=== PATIENT | female | born 1970 | race Caucasian/White ===

== ENCOUNTER 2018-08-02 16:15 | Inpatient (IN) | payer MEDICAID ==
[2018-08-02 16:24] VITALS: BMI 31.6
--- NOTE | 2018-08-02 16:44 | ED PDOC ---
Arrival/HPI - General Chief Complaint: Abdominal Pain Time Seen by Provider: 08/02/18 16:30 Historian: Patient, Family (Daughter), Etl Manager (Daughter) EM Caveat: Language Barrier - History of Present Illness Narrative History of Present Illness (Text): 08/02/18 16:40 48 y/o female with PMH of GERD and HTN presents to the ED c/o abdominal pain x 2 weeks. Abdominal pain is sharp, located in RUQ and Epigastric with radiation to back, constant but worse after eating. Associated nausea and occasional lightheadedness. Patient was seen at an Emergency Department in [place] and was diagnosed with gallstones, but elected not to have surgery at that time. She was placed on a course of antibiotics, which helped with her pain. Pt saw her PMD Dr. Haines this morning and was sent here for further evaluation. Taking tylenol for pain, last dose yesterday. Denies fevers, chills, vomiting, diarrhea, back pain, headache, vision changes, chest pain, diaphoresis, palpitations, SOB, urinary symptoms, or any other associated complaints. Past Medical History - Provider Review Nursing Documentation Reviewed: Yes - Infectious Disease Hx of Infectious Diseases: None - Cardiac Hx Cardiac Disorders: Yes Hx Hypertension: Yes - Pulmonary Hx Respiratory Disorders: Yes Hx Asthma: Yes - Neurological Hx Neurological Disorder: No - HEENT Hx HEENT Disorder: No - Renal Hx Renal Disorder: No - Endocrine/Metabolic Hx Endocrine Disorders: No - Hematological/Oncological Hx Blood Disorders: No - Integumentary Hx Dermatological Disorder: No - Musculoskeletal/Rheumatological Hx Musculoskeletal Disorders: No - Gastrointestinal Hx Gastrointestinal Disorders: No - Genitourinary/Gynecological Hx Genitourinary Disorders: No - Psychiatric Hx Psychophysiologic Disorder: No Hx Substance Use: No - Surgical History Hx Hysterectomy: Yes - Anesthesia Hx Anesthesia: Yes Hx Anesthesia Reactions: No - Suicidal Assessment Feels Threatened In Home Enviroment: No Family/Social History - Physician Review Nursing Documentation Reviewed: Yes Family/Social History: No Known Family HX Smoking Status: Never Smoked Hx Alcohol Use: No Hx Substance Use: No Allergies/Home Meds Allergies/Adverse Reactions: Allergies No Known Allergies Allergy (Verified 08/02/18 16:24) Home Medications: Home Meds Medication Instructions Recorded Confirmed Pantoprazole 40 mg PO DAILY 12/20/13 08/17/15 Calcium Citrate/Vitamin D3 1 tab PO DAILY 08/02/18 08/02/18 [Calcium Citrate - Vit D3 Tab] Dexlansoprazole [Dexilant] 60 mg PO DAILY 08/02/18 08/02/18 Hydrochlorothiazide [Microzide] 12.5 mg PO DAILY 08/02/18 08/02/18 Review of Systems - Physician Review All systems were reviewed & negative as marked: Yes - Review of Systems Constitutional: Normal. absent: Fatigue, Fevers Eyes: Normal. absent: Vision Changes ENT: Normal. absent: Sore Throat, Sinus Congestion Respiratory: Normal. absent: SOB Cardiovascular: Normal. absent: Chest Pain, Palpitations, Syncope Gastrointestinal: Abdominal Pain, Nausea, Appetite Changes (decreased). absent: Stool Changes, Constipation, Vomiting Genitourinary Female: Normal. absent: Dysuria, Frequency, Hematuria, Vaginal Bleeding, Vaginal Discharge Musculoskeletal: Back Pain. absent: Neck Pain Skin: Normal. absent: Rash, Cellulitis Neurological: Normal. absent: Headache Endocrine: Normal Hemo/Lymphatic: Normal Psychiatric: Normal Physical Exam Vital Signs Reviewed: Yes Vital Signs Temp Pulse Resp BP Pulse Ox 08/02/18 16:27 98.0 F 74 18 151/96 H 98 Temperature: Afebrile Blood Pressure: Hypertensive Pulse: Regular Respiratory Rate: Normal Appearance: Positive for: Well-Appearing, Non-Toxic, Comfortable Pain Distress: None Mental Status: Positive for: Alert and Oriented X 3 - Systems Exam Head: Present: Atraumatic, Normocephalic Pupils: Present: PERRL Extroacular Muscles: Present: EOMI Conjunctiva: Present: Normal Ears: Present: Normal, NORMAL TM Mouth: Present: Moist Mucous Membranes Pharnyx: Present: Normal. No: ERYTHEMA, EXUDATE Nose (External): Present: Atraumatic Nose (Internal): Present: Normal Inspection Neck: Present: Normal Range of Motion. No: MIDLINE TENDERNESS, Paraspinal Tenderness Respiratory/Chest: Present: Clear to Auscultation, Good Air Exchange. No: Respiratory Distress, Accessory Muscle Use Cardiovascular: Present: Regular Rate and Rhythm, Normal S1, S2, Peripheal Pulses Present. No: Murmurs Abdomen: Present: Tenderness (RUQ, Epigastric), Normal Bowel Sounds, Other ((+) [place] Sign). No: Distention, Peritoneal Signs Back: Present: Normal Inspection. No: CVA Tenderness, Midline Tenderness, Paraspinal Tenderness Upper Extremity: Present: Normal Inspection, Normal ROM, NORMAL PULSES, Neurovascularly Intact, Capillary Refill < 2s. No: Cyanosis, Edema Lower Extremity: Present: Normal Inspection, NORMAL PULSES, Normal ROM, Neurovascularly Intact, Capillary Refill < 2 s. No: Edema Neurological: Present: GCS=15, CN II-XII Intact, Speech Normal, Motor Func Grossly Intact, Normal Sensory Function, Gait Normal Skin: Present: Warm, Dry, Normal Color. No: Rashes, Diaphoretic Lymphatic: No: Cervical Adenopathy Psychiatric: Present: Alert, Oriented x 3, Normal Insight, Normal Concentration, Normal Affect, Normal Mood Medical Decision Making ED Course and Treatment: 08/02/18 17:14 Initial Plan: * CBC, CMP * Lipase, Amylase * Coags * CXR * EKG * Abd US * IVF * Zofran 19:35 Spoke with surgical technologist Dr. Booker who states he will come to evaluate patient in the ED. 19:[address] Valdez who accepts patient for admission to med-surg floor for diagnosis of symptomatic cholelithiasis. - RAD Interpretation Radiology Orders: Abdominal Ultrasound: FINDINGS: LIVER: Measures 13.9 cm. Hepatopedal blood flow. Fatty infiltration manifest ultrasonographically as increased echogenicity of the liver parenchyma. No mass. No intrahepatic bile duct dilatation. GALLBLADDER: Cholelithiasis. Negative study for gallbladder wall thickening, pericholecystic fluid, sonographic Pino's sign. COMMON BILE DUCT: Measures 4.9 mm. No stones. No dilatation. PANCREAS: Unremarkable as visualized. No mass. No ductal dilatation. RIGHT KIDNEY: Measures 4.5 x 10.7cm. Normal echogenicity. No calculus, mass, or hydronephrosis. LEFT KIDNEY: Measures 511.2cm. Normal echogenicity. No calculus, mass, or hydronephrosis. SPLEEN: Normal in size and contour. No mass. AORTA: No aneurysmal dilatation. IVC: Unremarkable. OTHER FINDINGS: None. IMPRESSION: Cholelithiasis. No sonographic evidence of acute cholecystitis. Intellectual Property Paralegal: Radiologist - EKG Interpretation EKG Interpretation (Text): 08/02/18 17:37 Rate 71; NSR; normal intervals; no ST elevations or other signs of ischemia Interpreted by ED Physician: Yes Type: 12 lead EKG Comparison: Com.w/previous EKG Disposition/Present on Arrival - Present on Arrival Any Indicators Present on Arrival: No History of DVT/PE: No History of Uncontrolled Diabetes: No Urinary Catheter: No History of Decub. Ulcer: No History Surgical Site Infection Following: None - Disposition Have Diagnosis and Disposition been Completed?: Yes Diagnosis: Cholelithiasis Disposition: HOSPITALIZED Disposition Time: 19:45 Patient Plan: Admission Condition: STABLE
[2018-08-02] MEDS ORDERED: Sodium Chloride 0.9% 1,000 ML IV SCH (17:00)
[2018-08-02 17:39] LABS: BASO # 0.03 K/mm3 (0.0-2.0); BASO % 0.6 % (0.0-3.0); EOS # 0.2 (0.0-0.7); EOS % 4.7 % (1.5-5.0); GRAN # 2.39 (1.4-6.5); GRAN % 51.4 % (50.0-68.0); HEMOGLOBIN 11.2 g/dL (12.0-16.0); LYMPH # 1.7 (1.2-3.4); LYMPH % 37.3 % (22.0-35.0); MEAN CELL VOLUME 87.9 fl (80.0-105.0); MEAN CORPUSCULAR HEMOGLOBIN 27.1 pg (25.0-35.0); MEAN CORPUSCULAR HGB CONC 30.8 g/dl (31.0-37.0); MONO # 0.3 (0.1-0.6); RBC 4.14 10^6/uL (3.5-6.1); RED CELL DISTRIBUTION WIDTH 13.5 % (11.5-14.5); WHITE BLOOD COUNT 4.7 10^3/uL (4.5-11.0)
[2018-08-02 17:51] LABS: ALB/GLOB RATIO 1.2 (1.1-1.8); ALBUMIN 3.8 g/dL (3.0-4.8); ALT/SGPT 99 U/L (7-56); AMYLASE 62 U/L (35-125); AST/SGOT 60 U/L (14-36); BLOOD UREA NITROGEN 13 mg/dL (7-21); CALCIUM 8.3 mg/dL (8.4-10.5); GFR NON-AFRICAN AMERICAN > 60; LIPASE 205 U/L (23-300)
[2018-08-02 18:11] LABS: INR 1.07; PROTHROMBIN TIME 12.3 SECONDS (9.4-12.5)
[2018-08-02 18:12] LABS: PARTIAL THROMBOPLASTIN TIME 32.9 Seconds (25.1-36.5); PH,URINE 6.5 (4.7-8.0); URINE BILIRUBIN NEGATIVE (NEGATIVE); URINE BLOOD TRACE-INTACT (NEGATIVE); URINE GLUCOSE (UA) NEGATIVE (NEGATIVE); URINE LEUKOCYTE ESTERASE NEGATIVE Leu/uL (NEGATIVE); URINE PROTEIN NEGATIVE mg/dL (<30 mg/dL); URINE UROBILINOGEN 0.2 E.U./dL (<1 E.U./dL)
[2018-08-02 18:13] LABS: URINE APPEARANCE CLEAR (CLEAR); URINE COLOR YELLOW (YELLOW)
[2018-08-02 18:15] LABS: URINE BACTERIA TRACE (NEG); URINE WBC NEGATIVE /hpf (0-6)
--- NOTE | 2018-08-02 18:52 | US ---
Date of service: 08/02/2018 HISTORY: h/o gallstones, abdominal pain COMPARISON: None. TECHNIQUE: Sonographic evaluation of the abdomen. FINDINGS: LIVER: Measures 13.9 cm. Hepatopedal blood flow. Fatty infiltration manifest ultrasonographically as increased echogenicity of the liver parenchyma. No mass. No intrahepatic bile duct dilatation. GALLBLADDER: Cholelithiasis. Negative study for gallbladder wall thickening, pericholecystic fluid, sonographic Pino's sign. COMMON BILE DUCT: Measures 4.9 mm. No stones. No dilatation. PANCREAS: Unremarkable as visualized. No mass. No ductal dilatation. RIGHT KIDNEY: Measures 4.5 x 10.7cm. Normal echogenicity. No calculus, mass, or hydronephrosis. LEFT KIDNEY: Measures 511.2cm. Normal echogenicity. No calculus, mass, or hydronephrosis. SPLEEN: Normal in size and contour. No mass. AORTA: No aneurysmal dilatation. IVC: Unremarkable. OTHER FINDINGS: None. IMPRESSION: Cholelithiasis. No sonographic evidence of acute cholecystitis.
[2018-08-02] MEDS ORDERED: Morphine 4 mg/ml ISec IVP STA (19:58)
--- NOTE | 2018-08-02 21:12 | CP.PCM.HP ---
<Yudith Leonard - Last Filed: 08/03/18 06:47> History of Present Illness - History of Present Illness History of Present Illness: Yudith Leonard, PGY1 Hospital H&P This is a 48 year old female with PMH of GERD, HTN and eczema presenting to the hospital for one day history of RUQ abdominal pain. Patient states pain started suddenly, radiates to the right side of the back, constant, rated 10/10, sharp, associated with nausea and worse after eating. Patient saw Dr. Haines today for the abdominal pain and was recommended to come to ER for further evaluation. Patient states she had similar pain two weeks ago while in [place] and abdominal US at that time revealed gallstones and physician recommended cholecystectomy but patient declined. She returned to [place] on July 31. She denies CP, SOB, headaches, fevers, chills, vomiting, urinary complaints, diarrhea, constipation, hematemesis, hematochezia, numbness, tingling, swelling, recent sickness, trauma and lifestyle change. 12 point ROS noted above, otherwise unremarkable. PMD: Dr. Haines PMH: GERD, HTN and eczema SH: denies drinking, smoking and drugs Sx: hysterectomy in 2014 FH: denies All: NKDA Meds: HCTZ 12.5mg Present on Admission - Present on Admission Any Indicators Present on Admission: No Past Patient History - Infectious Disease Hx of Infectious Diseases: None - Past Social History Smoking Status: Never Smoked - CARDIAC Hx Cardiac Disorders: Yes Hx Hypertension: Yes - PULMONARY Hx Respiratory Disorders: Yes Hx Asthma: Yes - NEUROLOGICAL Hx Neurological Disorder: No - HEENT Hx HEENT Problems: No - RENAL Hx Chronic Kidney Disease: No - ENDOCRINE/METABOLIC Hx Endocrine Disorders: No - HEMATOLOGICAL/ONCOLOGICAL Hx Blood Disorders: No - INTEGUMENTARY Hx Dermatological Problems: No - MUSCULOSKELETAL/RHEUMATOLOGICAL Hx Musculoskeletal Disorders: No - GASTROINTESTINAL Hx Gastrointestinal Disorders: No - GENITOURINARY/GYNECOLOGICAL Hx Genitourinary Disorders: No - PSYCHIATRIC Hx Psychophysiologic Disorder: No Hx Substance Use: No - SURGICAL HISTORY Hx Hysterectomy: Yes - ANESTHESIA Hx Anesthesia: Yes Hx Anesthesia Reactions: No Meds Allergies/Adverse Reactions: Allergies Allergy/AdvReac Type Severity Reaction Status Date / Time No Known Allergies Allergy Verified 08/02/18 16:24 Physical Exam - Constitutional Appears: No Acute Distress - Head Exam Head Exam: ATRAUMATIC, NORMAL INSPECTION - Eye Exam Eye Exam: EOMI Pupil Exam: PERRL - ENT Exam ENT Exam: Mucous Membranes Moist - Respiratory Exam Respiratory Exam: Clear to Auscultation Bilateral, NORMAL BREATHING PATTERN. absent: Accessory Muscle Use, Wheezes, Respiratory Distress - Cardiovascular Exam Cardiovascular Exam: REGULAR RHYTHM, +S1, +S2 - GI/Abdominal Exam GI & Abdominal Exam: Normal Bowel Sounds, Soft. absent: Distended, Firm, Guarding Additional comments: RUQ tenderness, evans sign negative, rovsing/obturator sign is negative - Extremities Exam Extremities exam: Positive for: normal inspection, pedal pulses present. Negative for: calf tenderness - Back Exam Back exam: NORMAL INSPECTION. absent: CVA tenderness (L), CVA tenderness (R) - Neurological Exam Neurological exam: Alert, Oriented x3 - Skin Skin Exam: Normal Color, Warm Results - Vital Signs Recent Vital Signs: Last Vital Signs Temp 98.0 F 08/02/18 16:27 Pulse 65 08/02/18 20:16 Resp 18 08/02/18 20:16 BP 125/73 08/02/18 20:16 Pulse Ox 100 08/02/18 20:16 - Labs Result Diagrams: 08/02/18 17:30 08/02/18 17:30 Labs: Laboratory Results - last 24 hr 08/02/18 08/02/18 08/02/18 17:30 17:30 17:30 WBC 4.7 RBC 4.14 Hgb 11.2 L Hct 36.4 MCV 87.9 MCH 27.1 MCHC 30.8 L RDW 13.5 Plt Count 213 MPV 10.0 Gran % 51.4 Lymph % (Auto) 37.3 H [place] % (Auto) 6.0 Eos % (Auto) 4.7 Baso % (Auto) 0.6 Gran # 2.39 Lymph # (Auto) 1.7 [place] # (Auto) 0.3 Eos # (Auto) 0.2 Baso # (Auto) 0.03 PT 12.3 INR 1.07 APTT 32.9 Sodium 139 Potassium 3.8 Chloride 108 H Carbon Dioxide 26 Anion Gap 10 BUN 13 Creatinine 0.7 Est GFR ( Amer) > 60 Est GFR (Non-Af Amer) > 60 Random Glucose 112 H Calcium 8.3 L Magnesium 1.8 Total Bilirubin 0.4 AST 60 H ALT 99 H Alkaline Phosphatase 86 Total Protein 7.0 Albumin 3.8 Globulin 3.2 Albumin/Globulin Ratio 1.2 Amylase 62 Lipase 205 Urine Color Urine Appearance Urine pH Ur Specific [place] Urine Protein Urine Glucose (UA) Urine Ketones Urine Blood Urine Nitrate Urine Bilirubin Urine Urobilinogen Ur Leukocyte Esterase Urine RBC Urine WBC Ur Epithelial Cells Urine Bacteria 08/02/18 17:30 WBC RBC Hgb Hct MCV MCH MCHC RDW Plt Count MPV Gran % Lymph % (Auto) [place] % (Auto) Eos % (Auto) Baso % (Auto) Gran # Lymph # (Auto) [place] # (Auto) Eos # (Auto) Baso # (Auto) PT INR APTT Sodium Potassium Chloride Carbon Dioxide Anion Gap BUN Creatinine Est GFR ( Amer) Est GFR (Non-Af Amer) Random Glucose Calcium Magnesium Total Bilirubin AST ALT Alkaline Phosphatase Total Protein Albumin Globulin Albumin/Globulin Ratio Amylase Lipase Urine Color Yellow Urine Appearance Clear Urine pH 6.5 Ur Specific [place] 1.020 Urine Protein Negative Urine Glucose (UA) Negative Urine Ketones Negative Urine Blood Trace-intact H Urine Nitrate Negative Urine Bilirubin Negative Urine Urobilinogen 0.2 Ur Leukocyte Esterase Negative Urine RBC 1 - 3 Urine WBC Negative Ur Epithelial Cells 1 - 3 Urine Bacteria Trace Assessment & Plan - Assessment and Plan (Free Text) Assessment: This is a 48 year old female with PMH of GERD, HTN and eczema presenting to the hospital for one day history of RUQ abdominal pain. Plan: Cholelithiasis -Abd US showed cholelithiasis, no evidence of acute cholecystitis -EKG showed NSR at 71bpm not ST/T changes -CXR pending, f/u official read -LR 115 -zofran prn -morphine prn -no WBC, afebrile. No antibx needed at this time -urine, blood cx pending -NPO -plan for OR tomorrow -General sx on consult, Dr. Meade Hypocalcemia -repleted, f/u AM labs Hx of GERD -protonix 40mg IVP daily Hx of HTN -hydralazine 10mg IVP q6 prn for systolic >140 PPX with protonix and SCD Patient seen and case discussed with attending, Dr. Valdez <Laurie Valdez - Last Filed: 08/03/18 19:11> Results - Vital Signs Recent Vital Signs: Last Vital Signs Temp 98.4 F 08/03/18 16:47 Pulse 68 08/03/18 16:47 Resp 18 08/03/18 16:47 BP 114/63 08/03/18 16:47 Pulse Ox 96 08/03/18 16:47 - Labs Result Diagrams: 08/03/18 06:40 08/03/18 06:40 Labs: Laboratory Results - last 24 hr 08/02/18 08/03/18 08/03/18 21:00 06:40 06:40 WBC 3.7 L D RBC 4.41 Hgb 11.8 L Hct 38.9 MCV 88.2 MCH 26.8 MCHC 30.3 L RDW 13.3 Plt Count 207 MPV 10.5 Gran % 47.7 L Lymph % (Auto) 39.8 H [place] % (Auto) 6.8 H Eos % (Auto) 4.9 Baso % (Auto) 0.8 Gran # 1.75 Lymph # (Auto) 1.5 [place] # (Auto) 0.3 Eos # (Auto) 0.2 Baso # (Auto) 0.03 Sodium 140 Potassium 4.1 Chloride 109 H Carbon Dioxide 26 Anion Gap 9 L BUN 8 Creatinine 0.6 L Est GFR ( Amer) > 60 Est GFR (Non-Af Amer) > 60 Random Glucose 96 Calcium 8.5 Total Bilirubin 0.5 AST 63 H ALT 99 H Alkaline Phosphatase 75 Total Protein 6.7 Albumin 3.6 Globulin 3.1 Albumin/Globulin Ratio 1.1 Hepatitis A IgM Ab Negative Hep Bs Antigen Negative Hep B Core IgM Ab Negative Hepatitis C Antibody Negative Blood Type Blood Type Confirm Antibody Screen BBK History Checked 08/03/18 08/03/18 07:40 10:00 WBC RBC Hgb Hct MCV MCH MCHC RDW Plt Count MPV Gran % Lymph % (Auto) [place] % (Auto) Eos % (Auto) Baso % (Auto) Gran # Lymph # (Auto) [place] # (Auto) Eos # (Auto) Baso # (Auto) Sodium Potassium Chloride Carbon Dioxide Anion Gap BUN Creatinine Est GFR ( Amer) Est GFR (Non-Af Amer) Random Glucose Calcium Total Bilirubin AST ALT Alkaline Phosphatase Total Protein Albumin Globulin Albumin/Globulin Ratio Hepatitis A IgM Ab Hep Bs Antigen Hep B Core IgM Ab Hepatitis C Antibody Blood Type B POSITIVE Blood Type Confirm B POSITIVE Antibody Screen Negative BBK History Checked No verified bt Attending/Attestation - Attestation I have personally seen and examined this patient.: Yes I have fully participated in the care of the patient.: Yes I have reviewed all pertinent clinical information: Yes
--- NOTE | 2018-08-02 21:28 | CP.PCM.CON ---
History of Present Illness - History of Present Illness History of Present Illness: Surgery consult note- Dr. Meade 48F pmhx significant for HTN, PUD on PPI at home presents to [facility] ED with mid- epigastric to RUQ pain that has been getting progressively worse over the last 2 weeks. She states now with every meal there is severe pain going to the RUQ radiating to the shoulder lasting up to 4 hours. Patient has associated nausea, and 1 episode of non-bloody, non-bilious vomiting. Denies fevers, chills, chest pain, shortness of breath, diarrhea. No recent sick contacts. Recently came from [place] on July 31 where she had similar symptoms and diagnosed her with gallstones. PMH: stated above PSH: Hysterectomy ALL: NKDA SocialHx: denies tobacco, etoh, recreational drug use FH: non-contributory Review of Systems - Review of Systems All systems: reviewed and no additional remarkable complaints except - Constitutional Constitutional: As Per HPI Past Patient History - Infectious Disease Hx of Infectious Diseases: None - Past Social History Smoking Status: Never Smoked - CARDIAC Hx Cardiac Disorders: Yes Hx Hypertension: Yes - PULMONARY Hx Respiratory Disorders: Yes Hx Asthma: Yes - NEUROLOGICAL Hx Neurological Disorder: No - HEENT Hx HEENT Problems: No - RENAL Hx Chronic Kidney Disease: No - ENDOCRINE/METABOLIC Hx Endocrine Disorders: No - HEMATOLOGICAL/ONCOLOGICAL Hx Blood Disorders: No - INTEGUMENTARY Hx Dermatological Problems: No - MUSCULOSKELETAL/RHEUMATOLOGICAL Hx Musculoskeletal Disorders: No - GASTROINTESTINAL Hx Gastrointestinal Disorders: No - GENITOURINARY/GYNECOLOGICAL Hx Genitourinary Disorders: No - PSYCHIATRIC Hx Psychophysiologic Disorder: No Hx Substance Use: No - SURGICAL HISTORY Hx Hysterectomy: Yes - ANESTHESIA Hx Anesthesia: Yes Hx Anesthesia Reactions: No Meds Allergies/Adverse Reactions: Allergies Allergy/AdvReac Type Severity Reaction Status Date / Time No Known Allergies Allergy Verified 08/02/18 16:24 - Medications Medications: Current Medications Sodium Chloride (Sodium Chloride 0.9%) 1,000 mls @ 100 mls/hr IV .Q10H ELVIA Last Admin: 08/02/18 17:24 Dose: 100 mls/hr Physical Exam - Constitutional Appears: Non-toxic, No Acute Distress - Head Exam Head Exam: ATRAUMATIC - Eye Exam Eye Exam: EOMI. absent: Scleral icterus - ENT Exam ENT Exam: Mucous Membranes Moist - Respiratory Exam Respiratory Exam: NORMAL BREATHING PATTERN. absent: Accessory Muscle Use, Respiratory Distress - Cardiovascular Exam Cardiovascular Exam: +S1, +S2. absent: Bradycardia, Tachycardia - GI/Abdominal Exam GI & Abdominal Exam: Guarding (voluntary guarding), Soft, Tenderness (tender to palpation RUQ, negative evans's sign). absent: Distended, Firm, Hernia, Rigid - Extremities Exam Extremities exam: Positive for: normal inspection. Negative for: calf tenderness - Back Exam Back exam: absent: CVA tenderness (L), CVA tenderness (R) - Neurological Exam Neurological exam: Alert, Oriented x3 - Psychiatric Exam Psychiatric exam: Normal Affect - Skin Skin Exam: Intact, Warm Results - Vital Signs Recent Vital Signs: Last Vital Signs Temp 98.0 F 08/02/18 16:27 Pulse 65 08/02/18 20:36 Resp 18 08/02/18 20:36 BP 125/73 08/02/18 20:36 Pulse Ox 100 08/02/18 20:36 - Labs Result Diagrams: 08/03/18 06:40 08/03/18 06:40 Labs: Laboratory Results - last 24 hr 08/02/18 08/02/18 08/02/18 17:30 17:30 17:30 WBC 4.7 RBC 4.14 Hgb 11.2 L Hct 36.4 MCV 87.9 MCH 27.1 MCHC 30.8 L RDW 13.5 Plt Count 213 MPV 10.0 Gran % 51.4 Lymph % (Auto) 37.3 H [place] % (Auto) 6.0 Eos % (Auto) 4.7 Baso % (Auto) 0.6 Gran # 2.39 Lymph # (Auto) 1.7 [place] # (Auto) 0.3 Eos # (Auto) 0.2 Baso # (Auto) 0.03 PT 12.3 INR 1.07 APTT 32.9 Sodium 139 Potassium 3.8 Chloride 108 H Carbon Dioxide 26 Anion Gap 10 BUN 13 Creatinine 0.7 Est GFR ( Amer) > 60 Est GFR (Non-Af Amer) > 60 Random Glucose 112 H Calcium 8.3 L Magnesium 1.8 Total Bilirubin 0.4 AST 60 H ALT 99 H Alkaline Phosphatase 86 Total Protein 7.0 Albumin 3.8 Globulin 3.2 Albumin/Globulin Ratio 1.2 Amylase 62 Lipase 205 Urine Color Urine Appearance Urine pH Ur Specific [place] Urine Protein Urine Glucose (UA) Urine Ketones Urine Blood Urine Nitrate Urine Bilirubin Urine Urobilinogen Ur Leukocyte Esterase Urine RBC Urine WBC Ur Epithelial Cells Urine Bacteria 08/02/18 17:30 WBC RBC Hgb Hct MCV MCH MCHC RDW Plt Count MPV Gran % Lymph % (Auto) [place] % (Auto) Eos % (Auto) Baso % (Auto) Gran # Lymph # (Auto) [place] # (Auto) Eos # (Auto) Baso # (Auto) PT INR APTT Sodium Potassium Chloride Carbon Dioxide Anion Gap BUN Creatinine Est GFR ( Amer) Est GFR (Non-Af Amer) Random Glucose Calcium Magnesium Total Bilirubin AST ALT Alkaline Phosphatase Total Protein Albumin Globulin Albumin/Globulin Ratio Amylase Lipase Urine Color Yellow Urine Appearance Clear Urine pH 6.5 Ur Specific [place] 1.020 Urine Protein Negative Urine Glucose (UA) Negative Urine Ketones Negative Urine Blood Trace-intact H Urine Nitrate Negative Urine Bilirubin Negative Urine Urobilinogen 0.2 Ur Leukocyte Esterase Negative Urine RBC 1 - 3 Urine WBC Negative Ur Epithelial Cells 1 - 3 Urine Bacteria Trace Assessment & Plan - Assessment and Plan (Free Text) Assessment: 48F w/ symptomatic cholelithiasis Plan: - NPO - pain control PRN - IVF - anti-emetic PRN - IVAbx - serial abd exams - further recs per Dr. Halina Booker PGY2
[2018-08-02] MEDS ORDERED: Lactated Ringer's 1,000 ML IV SCH (21:45)
[2018-08-02] MEDS: Morphine 2 mg/ml ISec IVP PRN (22:23)
[2018-08-02] MEDS: Lactated Ringer's 1,000 ML IV SCH (23:14)
[2018-08-03] MEDS: Morphine 2 mg/ml ISec IVP PRN (07:05)
--- NOTE | 2018-08-03 07:59 | RAD ---
Date of service: 08/02/2018 HISTORY: abdominal pain COMPARISON: 12/13/2012 FINDINGS: LUNGS: No active pulmonary disease. PLEURA: No significant pleural effusion identified, no pneumothorax apparent. CARDIOVASCULAR: No aortic atherosclerotic calcification present. Normal cardiac size. No pulmonary vascular congestion. OSSEOUS STRUCTURES: No significant abnormalities. VISUALIZED UPPER ABDOMEN: Normal. OTHER FINDINGS: Calcified granulomas in the right upper lobe IMPRESSION: No active disease.
[2018-08-03 08:00] LABS: BASO # 0.03 K/mm3 (0.0-2.0); BASO % 0.8 % (0.0-3.0); EOS # 0.2 (0.0-0.7); EOS % 4.9 % (1.5-5.0); GRAN # 1.75 (1.4-6.5); GRAN % 47.7 % (50.0-68.0); HEMOGLOBIN 11.8 g/dL (12.0-16.0); LYMPH # 1.5 (1.2-3.4); LYMPH % 39.8 % (22.0-35.0); MEAN CELL VOLUME 88.2 fl (80.0-105.0); MEAN CORPUSCULAR HEMOGLOBIN 26.8 pg (25.0-35.0); MEAN CORPUSCULAR HGB CONC 30.3 g/dl (31.0-37.0); MEAN PLATELET VOLUME 10.5 fl (7.0-11.0); MONO # 0.3 (0.1-0.6); MONO % 6.8 % (1.0-6.0); RBC 4.41 10^6/uL (3.5-6.1); RED CELL DISTRIBUTION WIDTH 13.3 % (11.5-14.5); WHITE BLOOD COUNT 3.7 10^3/uL (4.5-11.0)
--- NOTE | 2018-08-03 08:03 | CP.PCM.PN ---
<Julio C Juares - Last Filed: 08/03/18 15:11> Subjective - Date & Time of Evaluation Date of Evaluation: 08/03/18 Time of Evaluation: 08:02 - Subjective Subjective: Jose C Mor PGY2 - Progress note for Hospitalist Service Patient seen and evaluated this AM. Patient reports continued abdominal discomfort of the right upper quadrant. She denies nausea, vomiting, chest pain, shortness of breath, fever, chills. Objective - Vital Signs/Intake and Output Vital Signs (last 24 hours): Temp Pulse Resp BP Pulse Ox 98.0 F 65 18 125/73 100 08/02/18 16:27 08/02/18 20:36 08/03/18 00:32 08/02/18 20:36 08/02/18 20:36 - Medications Medications: Current Medications Hydralazine HCl (Apresoline) 10 mg IVP Q6 PRN PRN Reason: Systolic Blood Pressure Hydromorphone HCl (Dilaudid) 0.5 mg IVP Q4H PRN PRN Reason: Pain, moderate (4-7) Lactated Ringer's (Lactated Ringer's) 1,000 mls @ 120 mls/hr IV .Q8H20M [facility] Last Admin: 08/02/18 23:14 Dose: 120 mls/hr Ciprofloxacin (Cipro 200mg/100ml D5w) 100 mls @ 67 mls/hr IVPB Q12 [facility]; Protocol Stop: 08/03/18 11:30 Metronidazole (Flagyl) 500 mg in 100 mls @ 100 mls/hr IVPB Q8 [facility]; Protocol Ondansetron HCl (Zofran Inj) 4 mg IVP Q4H PRN PRN Reason: Nausea/Vomiting Pantoprazole Sodium (Protonix Inj) 40 mg IVP DAILY [facility] - Labs Labs: 08/02/18 17:30 08/02/18 17:30 PT 12.3 SECONDS (9.4-12.5) 08/02/18 17:30 INR 1.07 08/02/18 17:30 APTT 32.9 Seconds (25.1-36.5) 08/02/18 17:30 - Constitutional Appears: No Acute Distress - Head Exam Head Exam: ATRAUMATIC, NORMAL INSPECTION, NORMOCEPHALIC - Eye Exam Eye Exam: EOMI, PERRL - ENT Exam ENT Exam: Mucous Membranes Moist - Respiratory Exam Respiratory Exam: Clear to Ausculation Bilateral, NORMAL BREATHING PATTERN - Cardiovascular Exam Cardiovascular Exam: REGULAR RHYTHM, +S1, +S2 - GI/Abdominal Exam GI & Abdominal Exam: Soft, Tenderness (RUQ), Normal Bowel Sounds - Extremities Exam Extremities Exam: Normal Inspection. absent: Pedal Edema - Neurological Exam Neurological Exam: Alert, Awake, Oriented x3 Neuro motor strength exam: Left Upper Extremity: 5, Right Upper Extremity: 5, Left Lower Extremity: 5, Right Lower Extremity: 5 - Psychiatric Exam Psychiatric exam: Normal Affect, Normal Mood - Skin Skin Exam: Dry, Intact Assessment and Plan - Assessment and Plan (Free Text) Assessment: 48 year old female with PMH of GERD, HTN, eczema, osteoporosis and cholelithiasis who presented to the hospital for 1 day history of RUQ abdominal discomfort. Patient with US evidecne of gallstones. Patient evaluated by General surgery team for possible intervention. Plan: Cholelithiasis - Abd US(08/02/18): Cholelithiasis, no evidence of acute cholecystitis - CXR: no active disease - Metronidazole - Zofran prn - urine, blood cx pending - General surgery consulted and following, Dr. Meade - veronika per General surgery Hypocalcemia - Corrected calcium is 8.5 from admission - Labs today show 8.5 uncorrected - Continue to monitor Hx of GERD - protonix 40mg IVP daily Hx of HTN - hydralazine 10mg IVP q6 prn for systolic >140 GI/DVT ppx - Protonix - SCD Patient seen and case discussed with attending, Dr. Mann <Vikram Mann - Last Filed: 08/03/18 15:30> Objective - Vital Signs/Intake and Output Vital Signs (last 24 hours): Temp Pulse Resp BP Pulse Ox 98.4 F 68 18 114/63 96 08/03/18 14:00 08/03/18 14:00 08/03/18 14:00 08/03/18 14:00 08/03/18 14:00 - Medications Medications: Current Medications Hydralazine HCl (Apresoline) 10 mg IVP Q6 PRN PRN Reason: Systolic Blood Pressure Hydromorphone HCl (Dilaudid) 0.5 mg IVP Q4H PRN PRN Reason: Pain, moderate (4-7) Lactated Ringer's (Lactated Ringer's) 1,000 mls @ 120 mls/hr IV .Q8H20M [facility] Last Admin: 08/02/18 23:14 Dose: 120 mls/hr Metronidazole (Flagyl) 500 mg in 100 mls @ 100 mls/hr IVPB Q8 [facility]; Protocol Last Admin: 08/03/18 13:47 Dose: 100 mls/hr Ondansetron HCl (Zofran Inj) 4 mg IVP Q4H PRN PRN Reason: Nausea/Vomiting Pantoprazole Sodium (Protonix Inj) 40 mg IVP DAILY [facility] Last Admin: 08/03/18 09:56 Dose: 40 mg - Labs Labs: 08/03/18 06:40 08/03/18 06:40 PT 12.3 SECONDS (9.4-12.5) 08/02/18 17:30 INR 1.07 08/02/18 17:30 APTT 32.9 Seconds (25.1-36.5) 08/02/18 17:30 Attending/Attestation - Attestation I have personally seen and examined this patient.: Yes I have fully participated in the care of the patient.: Yes I have reviewed all pertinent clinical information, including history, physical exam and plan: Yes Notes (Text): 08/03/18 15:25 48 year old female with past medical history of hypertension and GERD who presented with complaint of RUQ pain. She states she was recently in [place] diagnosed with gallstones. Ultrasound abdomen confirms cholelithiasis, without evidence of cholecystitis. She is currently NPO, on iv fluids and analgesics. Surgery is following and plan is for possible OR tomorrow. Monitor LFTs closely, likely elevated secondary to above. She is on protonix for GERD. Family is at bedside and questions were answered. Vikram Mann MD Hospitalist.
[2018-08-03 08:35] LABS: ALB/GLOB RATIO 1.1 (1.1-1.8); ALBUMIN 3.6 g/dL (3.0-4.8); ALT/SGPT 99 U/L (7-56); AST/SGOT 63 U/L (14-36); BLOOD UREA NITROGEN 8 mg/dL (7-21); CALCIUM 8.5 mg/dL (8.4-10.5); GFR NON-AFRICAN AMERICAN > 60
--- NOTE | 2018-08-03 09:56 | CARD ---
APPROVED REPORT Date of service: 08/02/2018 EKG Measurement Heart [id number] <Conclusion> Normal sinus rhythm Low voltage QRS Borderline ECG
[2018-08-03] MEDS ORDERED: Ciprofloxacin 200mg/100ml D5W 100 ML IVPB SCH (10:00)
[2018-08-03 12:33] LABS: HEPATITIS B SURFACE AG Negative (NEGATIVE)
[2018-08-03 12:39] LABS: HEPATITIS A IGM NEGATIVE (NEGATIVE); HEPATITIS B CORE AB NEGATIVE (NEGATIVE)
[2018-08-03 12:51] LABS: HEPATITIS C ANTIBODY NEGATIVE (NEGATIVE)
[2018-08-03] MEDS ORDERED: metroNIDAZOLE IV 500 mg/100 ml 500 MG/100 ML BAG IVPB SCH (14:00)
[2018-08-03] MEDS: HYDROmorphone 0.5 mg/0.5 ml ISec IVP PRN (16:37)
[2018-08-04] MEDS: Lactated Ringer's 1,000 ML IV SCH ×2 (06:13→12:23)
--- NOTE | 2018-08-04 08:27 | CP.PCM.PN ---
Subjective - Date & Time of Evaluation Date of Evaluation: 08/04/18 Time of Evaluation: 07:55 - Subjective Subjective: General Surgery progress note for Dr. Meade Patient seen and examined this am at bedside. She continued to have pain overnight and is requesting pain medication at this time. Patient states she has had one episode of nausea but no vomiting and did not have an appetite last night for dinner. She otherwise denies LEDESMA, CP, SOB, f/c and extremity pain or weakness. Objective - Vital Signs/Intake and Output Vital Signs (last 24 hours): Temp Pulse Resp BP Pulse Ox 98.7 F 62 18 127/83 94 L 08/03/18 22:00 08/03/18 22:00 08/03/18 22:00 08/03/18 22:00 08/03/18 22:00 Intake and Output: 08/04/18 08/04/18 06:59 18:59 Intake Total 0 Balance 0 - Medications Medications: Current Medications Hydralazine HCl (Apresoline) 10 mg IVP Q6 PRN PRN Reason: Systolic Blood Pressure Hydromorphone HCl (Dilaudid) 0.5 mg IVP Q4H PRN PRN Reason: Pain, moderate (4-7) Last Admin: 08/03/18 16:37 Dose: 0.5 mg Lactated Ringer's (Lactated Ringer's) 1,000 mls @ 120 mls/hr IV .Q8H20M [facility] Last Admin: 08/04/18 06:13 Dose: 120 mls/hr Ondansetron HCl (Zofran Inj) 4 mg IVP Q4H PRN PRN Reason: Nausea/Vomiting Pantoprazole Sodium (Protonix Inj) 40 mg IVP DAILY [facility] Last Admin: 08/03/18 09:56 Dose: 40 mg - Labs Labs: 08/03/18 06:40 08/03/18 06:40 PT 12.3 SECONDS (9.4-12.5) 08/02/18 17:30 INR 1.07 08/02/18 17:30 APTT 32.9 Seconds (25.1-36.5) 08/02/18 17:30 - Constitutional Appears: Well, Non-toxic, No Acute Distress - Head Exam Head Exam: ATRAUMATIC, NORMOCEPHALIC - Eye Exam Eye Exam: EOMI - ENT Exam ENT Exam: Mucous Membranes Moist - Respiratory Exam Respiratory Exam: NORMAL BREATHING PATTERN - Cardiovascular Exam Cardiovascular Exam: REGULAR RHYTHM - GI/Abdominal Exam GI & Abdominal Exam: Soft, Tenderness (RUQ, epigastric). absent: Distended, Guarding - Extremities Exam Extremities Exam: absent: Calf Tenderness, Pedal Edema - Neurological Exam Neurological Exam: Alert, Awake, Oriented x3 - Psychiatric Exam Psychiatric exam: Normal Affect, Normal Mood - Skin Skin Exam: Dry, Intact, Normal Color, Warm Assessment and Plan - Assessment and Plan (Free Text) Assessment: 48 yr old female with Plan: continue NPO status pain control IVF Zofran serial abdominal exams f/u am labs Discussed with Dr. Halina Haji, PGY 1
[2018-08-04] MEDS: HYDROmorphone 0.5 mg/0.5 ml ISec IVP PRN ×6 (08:30→23:46)
[2018-08-04 08:50] LABS: HEMOGLOBIN 11.9 g/dL (12.0-16.0); MEAN CELL VOLUME 86.4 fl (80.0-105.0); MEAN CORPUSCULAR HGB CONC 31.3 g/dl (31.0-37.0); MEAN PLATELET VOLUME 9.9 fl (7.0-11.0); RBC 4.4 10^6/uL (3.5-6.1); WHITE BLOOD COUNT 3.8 10^3/uL (4.5-11.0)
[2018-08-04 09:14] LABS: ALB/GLOB RATIO 1.2 (1.1-1.8); ALBUMIN 3.7 g/dL (3.0-4.8); ALT/SGPT 100 U/L (7-56); AST/SGOT 64 U/L (14-36); BLOOD UREA NITROGEN 8 mg/dL (7-21); CALCIUM 8.9 mg/dL (8.4-10.5); GFR NON-AFRICAN AMERICAN > 60
[2018-08-04] MEDS ORDERED: Docusate-Senna 50 mg-8.6 mg Tab PO PRN (10:54)
[2018-08-04] MEDS ORDERED: Propofol 10 mg/ml Inj (20 ML) ONE (15:13)
[2018-08-04] MEDS ORDERED: Succinylcholine 200 mg/10 ml Inj IV ONE (15:13)
[2018-08-04] MEDS ORDERED: Rocuronium 10 mg/ml (5 ml) ONE ×2 (15:13→15:53)
[2018-08-04] MEDS ORDERED: Midazolam 2 MG/2 ML VIAL ONE (15:15)
[2018-08-04] MEDS ORDERED: CeFAZolin 1 gm in NS 100ml IVPB ONE (15:55)
[2018-08-04] MEDS ORDERED: Bupivacaine 0.5% 50 ML IJ ONE ×2 (15:56→15:59)
[2018-08-04] MEDS ORDERED: Neostigmine Methylsulfate 3mg/3ml Syringe IV ONE (16:05)
[2018-08-04] MEDS ORDERED: Esmolol 100 mg/10ml Inj IV ONE (16:52)
--- NOTE | 2018-08-04 17:20 | PCM.SURG1 ---
Surgeon's Initial Post Op Note - Surgeon's Notes Surgeon: Dr. Meade Radiotelegraphist: Dr. Cruz PGY3, Dr. Heath PGY1 Type of Anesthesia: General Endo Pre-Operative Diagnosis: symptomatic cholelithiasis Operative Findings: see operative report Post-Operative Diagnosis: see op report Operation Performed: laparoscopic cholecystectomy Specimen/Specimens Removed: gallbladder Estimated Blood Loss: EBL {In ML}: 10 Blood Products Given: N/A Drains Used: No Drains Post-Op Condition: Good Date of Surgery/Procedure: 08/04/18 Time of Surgery/Procedure: 17:20
[2018-08-04] MEDS ORDERED: HYDROmorphone 0.5 mg/0.5 ml ISec ONE ×3 (17:28→18:03)
--- NOTE | 2018-08-04 18:23 | CP.PCM.PN ---
<Julio C Juares - Last Filed: 08/04/18 18:26> Subjective - Date & Time of Evaluation Date of Evaluation: 08/04/18 Time of Evaluation: 09:00 - Subjective Subjective: Jose C Juares PGY2 - Progress note for Hospitalist Service Patient seen and evaluated this AM. Patient pending possible surgery today. Continues to express abdominal discomfort, nausea without vomiting. Patient denies chest pain, shortness of breath, fever, chills, diarrhea, constipation. Objective - Vital Signs/Intake and Output Vital Signs (last 24 hours): Temp Pulse Resp BP Pulse Ox 98.8 F 81 16 161/92 H 99 08/04/18 17:50 08/04/18 17:50 08/04/18 17:50 08/04/18 17:50 08/04/18 17:50 Intake and Output: 08/04/18 08/04/18 06:59 18:59 Intake Total 0 Balance 0 - Medications Medications: Current Medications Hydralazine HCl (Apresoline) 10 mg IVP Q6 PRN PRN Reason: Systolic Blood Pressure Hydromorphone HCl (Dilaudid) 0.5 mg IVP Q4H PRN PRN Reason: Pain, moderate (4-7) Last Admin: 08/04/18 14:12 Dose: 0.5 mg Hydromorphone HCl (Dilaudid) 0.5 mg IVP Q15M PRN PRN Reason: Pain, moderate (4-7) Stop: 08/04/18 23:59 Last Admin: 08/04/18 17:45 Dose: 0.5 mg Lactated Ringer's (Lactated Ringer's) 1,000 mls @ 120 mls/hr IV .Q8H20M [facility] Last Admin: 08/04/18 12:23 Dose: 120 mls/hr Metoclopramide HCl (Reglan) 10 mg IV ONCE PRN PRN Reason: Nausea/Vomiting Ondansetron HCl (Zofran Inj) 4 mg IVP Q4H PRN PRN Reason: Nausea/Vomiting Last Admin: 08/04/18 14:12 Dose: 4 mg Ondansetron HCl (Zofran Inj) 4 mg IVP ONCE PRN PRN Reason: Nausea/Vomiting Ondansetron HCl (Zofran Inj) 4 mg IVP ONCE PRN PRN Reason: Nausea/Vomiting Pantoprazole Sodium (Protonix Inj) 40 mg IVP DAILY [facility] Last Admin: 08/04/18 09:19 Dose: 40 mg Senna/Docusate Sodium (Senokot S 50 Mg-8.6 Mg) 1 tab PO BID PRN PRN Reason: Constipation - Labs Labs: 08/04/18 08:15 08/04/18 08:15 PT 12.3 SECONDS (9.4-12.5) 08/02/18 17:30 INR 1.07 08/02/18 17:30 APTT 32.9 Seconds (25.1-36.5) 08/02/18 17:30 - Constitutional Appears: No Acute Distress - Head Exam Head Exam: ATRAUMATIC, NORMAL INSPECTION, NORMOCEPHALIC - Eye Exam Eye Exam: EOMI, PERRL - ENT Exam ENT Exam: Mucous Membranes Moist - Neck Exam Neck Exam: Full ROM - Respiratory Exam Respiratory Exam: Clear to Ausculation Bilateral, NORMAL BREATHING PATTERN - Cardiovascular Exam Cardiovascular Exam: REGULAR RHYTHM, +S1, +S2 - GI/Abdominal Exam GI & Abdominal Exam: Soft, Tenderness (RUQ), Normal Bowel Sounds - Extremities Exam Extremities Exam: Normal Inspection. absent: Pedal Edema - Neurological Exam Neurological Exam: Alert, Awake, Normal Gait, Oriented x3 Neuro motor strength exam: Left Upper Extremity: 5, Right Upper Extremity: 5, Left Lower Extremity: 5, Right Lower Extremity: 5 - Psychiatric Exam Psychiatric exam: Normal Affect, Normal Mood - Skin Skin Exam: Dry, Intact Assessment and Plan - Assessment and Plan (Free Text) Assessment: 48 year old female with PMH of GERD, HTN, eczema, osteoporosis and cholelithiasis who presented to the hospital for 1 day history of RUQ abdominal discomfort. Patient with US evidecne of gallstones. Patient evaluated by General surgery team for possible intervention. Patient possible for surgery today with GS for cholecystectomy Plan: Cholelithiasis - Abd US(08/02/18): Cholelithiasis, no evidence of acute cholecystitis - CXR: no active disease - Zofran, reglan prn - urine, blood cx pending - General surgery consulted and following, Dr. Meade - Pain control with Diluadid per General surgery - Patient went to OR for cholecystectomy Transaminitis - Likely secondary to cholelithiasis - Hepatitis Panel negative - Continue to observe, labs f/u Urine Culture positive for lactobacillus species - Patient without dysuria symptoms - Continue to monitor clinically Hx of GERD - protonix 40mg IVP daily Hx of HTN - hydralazine 10mg IVP q6 prn for systolic >140 GI/DVT ppx - Protonix - SCD Patient seen and case discussed with attending, Dr. Mann <Vikram Mann - Last Filed: 08/04/18 18:36> Objective - Vital Signs/Intake and Output Vital Signs (last 24 hours): Temp Pulse Resp BP Pulse Ox 98.8 F 81 16 161/92 H 99 08/04/18 17:50 08/04/18 17:50 08/04/18 17:50 08/04/18 17:50 08/04/18 17:50 Intake and Output: 08/04/18 08/04/18 06:59 18:59 Intake Total 0 Balance 0 - Medications Medications: Current Medications Hydralazine HCl (Apresoline) 10 mg IVP Q6 PRN PRN Reason: Systolic Blood Pressure Hydromorphone HCl (Dilaudid) 0.5 mg IVP Q4H PRN PRN Reason: Pain, moderate (4-7) Last Admin: 08/04/18 14:12 Dose: 0.5 mg Hydromorphone HCl (Dilaudid) 0.5 mg IVP Q15M PRN PRN Reason: Pain, moderate (4-7) Stop: 08/04/18 23:59 Last Admin: 08/04/18 17:45 Dose: 0.5 mg Lactated Ringer's (Lactated Ringer's) 1,000 mls @ 120 mls/hr IV .Q8H20M [facility] Last Admin: 08/04/18 12:23 Dose: 120 mls/hr Metoclopramide HCl (Reglan) 10 mg IV ONCE PRN PRN Reason: Nausea/Vomiting Ondansetron HCl (Zofran Inj) 4 mg IVP Q4H PRN PRN Reason: Nausea/Vomiting Last Admin: 08/04/18 14:12 Dose: 4 mg Ondansetron HCl (Zofran Inj) 4 mg IVP ONCE PRN PRN Reason: Nausea/Vomiting Ondansetron HCl (Zofran Inj) 4 mg IVP ONCE PRN PRN Reason: Nausea/Vomiting Pantoprazole Sodium (Protonix Inj) 40 mg IVP DAILY [facility] Last Admin: 08/04/18 09:19 Dose: 40 mg Senna/Docusate Sodium (Senokot S 50 Mg-8.6 Mg) 1 tab PO BID PRN PRN Reason: Constipation - Labs Labs: 08/04/18 08:15 08/04/18 08:15 PT 12.3 SECONDS (9.4-12.5) 08/02/18 17:30 INR 1.07 08/02/18 17:30 APTT 32.9 Seconds (25.1-36.5) 08/02/18 17:30 Attending/Attestation - Attestation I have personally seen and examined this patient.: Yes I have fully participated in the care of the patient.: Yes I have reviewed all pertinent clinical information, including history, physical exam and plan: Yes Notes (Text): 08/04/18 18:35 48 year old female with past medical history of hypertension and GERD who presented with complaint of RUQ pain. She states she was recently in [place] diagnosed with gallstones. Ultrasound abdomen confirms cholelithiasis, without evidence of cholecystitis. She is currently NPO, on iv fluids and analgesics. Surgery is following and plan is for lap lyndsay today. Monitor LFTs closely, likely elevated secondary to above. She is on protonix for GERD. Family is at bedside and questions were answered. Vikram Mann MD Hospitalist.
[2018-08-04] MEDS ORDERED: HYDROmorphone 0.5 mg/0.5 ml ISec IVP ONE (20:21)
[2018-08-05] MEDS: HYDROmorphone 0.5 mg/0.5 ml ISec IVP PRN (04:46)
[2018-08-05] MEDS ORDERED: Oxycodone/Acetaminophen 5/325 mg Tab PO PRN (06:19)
[2018-08-05] MEDS ORDERED: HYDROmorphone 0.5 mg/0.5 ml ISec IVP PRN (06:19)
[2018-08-05 07:40] LABS: GRAN # 5.68 (1.4-6.5); GRAN % 88.5 % (50.0-68.0); HEMOGLOBIN 12.2 g/dL (12.0-16.0); LYMPH # 0.5 (1.2-3.4); LYMPH % 8.4 % (22.0-35.0); MEAN CELL VOLUME 84.7 fl (80.0-105.0); MEAN CORPUSCULAR HEMOGLOBIN 27.4 pg (25.0-35.0); MEAN CORPUSCULAR HGB CONC 32.4 g/dl (31.0-37.0); MEAN PLATELET VOLUME 9.9 fl (7.0-11.0); MONO # 0.2 (0.1-0.6); MONO % 3.1 % (1.0-6.0); RBC 4.45 10^6/uL (3.5-6.1); WHITE BLOOD COUNT 6.4 10^3/uL (4.5-11.0)
--- NOTE | 2018-08-05 07:42 | CP.PCM.PN ---
Subjective - Date & Time of Evaluation Date of Evaluation: 08/05/18 Time of Evaluation: 07:41 - Subjective Subjective: Surgery Progress note- Dr. Meade patient seen and examined at bedside. No acute events overnight. tolerating current diet. denies nausea, vomiting, fevers, chills. Objective - Vital Signs/Intake and Output Vital Signs (last 24 hours): Temp Pulse Resp BP Pulse Ox 98.6 F 20 L 98 H 105/57 L 20 L 08/04/18 22:00 08/04/18 22:00 08/04/18 22:00 08/04/18 22:00 08/04/18 22:00 - Medications Medications: Current Medications Hydralazine HCl (Apresoline) 10 mg IVP Q6 PRN PRN Reason: Systolic Blood Pressure Hydromorphone HCl (Dilaudid) 0.5 mg IVP Q6H PRN PRN Reason: Pain, severe (8-10) Lactated Ringer's (Lactated Ringer's) 1,000 mls @ 120 mls/hr IV .Q8H20M [facility] Last Admin: 08/04/18 12:23 Dose: 120 mls/hr Metoclopramide HCl (Reglan) 10 mg IV ONCE PRN PRN Reason: Nausea/Vomiting Ondansetron HCl (Zofran Inj) 4 mg IVP Q4H PRN PRN Reason: Nausea/Vomiting Last Admin: 08/04/18 14:12 Dose: 4 mg Ondansetron HCl (Zofran Inj) 4 mg IVP ONCE PRN PRN Reason: Nausea/Vomiting Ondansetron HCl (Zofran Inj) 4 mg IVP ONCE PRN PRN Reason: Nausea/Vomiting Oxycodone/Acetaminophen (Percocet 5/325 Mg Tab) 1 tab PO Q4H PRN PRN Reason: Pain, moderate (4-7) Stop: 08/08/18 06:20 Pantoprazole Sodium (Protonix Inj) 40 mg IVP DAILY [facility] Last Admin: 08/04/18 09:19 Dose: 40 mg Senna/Docusate Sodium (Senokot S 50 Mg-8.6 Mg) 1 tab PO BID PRN PRN Reason: Constipation - Labs Labs: 08/04/18 08:15 08/04/18 08:15 PT 12.3 SECONDS (9.4-12.5) 08/02/18 17:30 INR 1.07 08/02/18 17:30 APTT 32.9 Seconds (25.1-36.5) 08/02/18 17:30 - Constitutional Appears: Non-toxic, No Acute Distress - Head Exam Head Exam: ATRAUMATIC - Eye Exam Eye Exam: EOMI - ENT Exam ENT Exam: Mucous Membranes Moist - Cardiovascular Exam Cardiovascular Exam: +S1, +S2. absent: Bradycardia - GI/Abdominal Exam GI & Abdominal Exam: Soft, Tenderness (appropriately tender around incision). absent: Distended, Firm, Guarding, Rigid, Mass Additional comments: incisions covered with 4x4 and tegaderm dressing C/D/I - Neurological Exam Neurological Exam: Alert, Awake, Oriented x3 - Psychiatric Exam Psychiatric exam: Normal Affect - Skin Skin Exam: Intact, Warm Assessment and Plan - Assessment and Plan (Free Text) Assessment: 48F s/p Laparoscopic cholecystectomy POD#1 Plan: - diet as tolerated - d/c IVF - PO analgesia - follow up in office 10 days w/ Dr. Meade - discussed w/ Dr. Meade surgical attending [facility] PGY2
[2018-08-05 07:59] LABS: ALB/GLOB RATIO 1.1 (1.1-1.8); ALBUMIN 3.6 g/dL (3.0-4.8); ALT/SGPT 118 U/L (7-56); AST/SGOT 103 U/L (14-36); BLOOD UREA NITROGEN 10 mg/dL (7-21); CALCIUM 8.7 mg/dL (8.4-10.5); GFR NON-AFRICAN AMERICAN > 60
[2018-08-05 10:37] VITALS: BP 136/81; PULSE 75; RESP 20; TEMP 98; O2SAT 96
--- NOTE | 2018-08-05 11:52 | CP.PCM.DIS ---
Provider - Provider Date of Admission: 08/02/18 19:44 Attending physician: Vikram Mann MD Primary care physician: Raisa Haines MD Consults: 08/02/18 19:39 General Surgery Consult Stat Comment: Consulting Provider: Zeferino Maede Consulting Physician: Zeferino Meade Reason for Consult: Symptomatic Cholelithiasis Time Spent in preparation of Discharge (in minutes): 35 Hospital Course - Lab Results Lab Results: Micro Results 08/02/18 17:30 Urine Urine Culture - Final Lactobacillus Species Most Recent Lab Values WBC 6.4 10^3/uL (4.5-11.0) D 08/05/18 07:15 RBC 4.45 10^6/uL (3.5-6.1) 08/05/18 07:15 Hgb 12.2 g/dL (12.0-16.0) 08/05/18 07:15 Hct 37.7 % (36.0-48.0) 08/05/18 07:15 MCV 84.7 fl (80.0-105.0) 08/05/18 07:15 MCH 27.4 pg (25.0-35.0) 08/05/18 07:15 MCHC 32.4 g/dl (31.0-37.0) 08/05/18 07:15 RDW 13.0 % (11.5-14.5) 08/05/18 07:15 Plt Count 229 10^3/uL (120.0-450.0) 08/05/18 07:15 MPV 9.9 fl (7.0-11.0) 08/05/18 07:15 Gran % 88.5 % (50.0-68.0) H 08/05/18 07:15 Lymph % (Auto) 8.4 % (22.0-35.0) L 08/05/18 07:15 [place] % (Auto) 3.1 % (1.0-6.0) 08/05/18 07:15 Eos % (Auto) 0.0 % (1.5-5.0) L 08/05/18 07:15 Baso % (Auto) 0.0 % (0.0-3.0) 08/05/18 07:15 Gran # 5.68 (1.4-6.5) 08/05/18 07:15 Lymph # (Auto) 0.5 (1.2-3.4) L 08/05/18 07:15 [place] # (Auto) 0.2 (0.1-0.6) 08/05/18 07:15 Eos # (Auto) 0.0 (0.0-0.7) 08/05/18 07:15 Baso # (Auto) 0.00 K/mm3 (0.0-2.0) 08/05/18 07:15 PT 12.3 SECONDS (9.4-12.5) 08/02/18 17:30 INR 1.07 08/02/18 17:30 APTT 32.9 Seconds (25.1-36.5) 08/02/18 17:30 Sodium 138 mmol/L (132-148) 08/05/18 07:15 Potassium 4.0 mmol/L (3.6-5.0) 08/05/18 07:15 Chloride 106 mmol/L (98-107) 08/05/18 07:15 Carbon Dioxide 26 mmol/L (21-33) 08/05/18 07:15 Anion Gap 10 (10-20) 08/05/18 07:15 BUN 10 mg/dL (7-21) 08/05/18 07:15 Creatinine 0.6 mg/dl (0.7-1.2) L 08/05/18 07:15 Est GFR ( Amer) > 60 08/05/18 07:15 Est GFR (Non-Af Amer) > 60 08/05/18 07:15 Random Glucose 135 mg/dL (70-110) H 08/05/18 07:15 Calcium 8.7 mg/dL (8.4-10.5) 08/05/18 07:15 Magnesium 1.8 mg/dL (1.7-2.2) 08/02/18 17:30 Total Bilirubin 0.7 mg/dL (0.2-1.3) 08/05/18 07:15 AST 103 U/L (14-36) H D 08/05/18 07:15 ALT 118 U/L (7-56) H 08/05/18 07:15 Alkaline Phosphatase 77 U/L (38-126) 08/05/18 07:15 Total Protein 6.8 g/dL (5.8-8.3) 08/05/18 07:15 Albumin 3.6 g/dL (3.0-4.8) 08/05/18 07:15 Globulin 3.2 gm/dL 08/05/18 07:15 Albumin/Globulin Ratio 1.1 (1.1-1.8) 08/05/18 07:15 Amylase 62 U/L (35-125) 08/02/18 17:30 Lipase 205 U/L (23-300) 08/02/18 17:30 Urine Color Yellow (YELLOW) 08/02/18 17:30 Urine Appearance Clear (CLEAR) 08/02/18 17:30 Urine pH 6.5 (4.7-8.0) 08/02/18 17:30 Ur Specific [place] 1.020 (1.005-1.035) 08/02/18 17:30 Urine Protein Negative mg/dL (<30 mg/dL) 08/02/18 17:30 Urine Glucose (UA) Negative mg/dL (NEGATIVE) 08/02/18 17:30 Urine Ketones Negative mg/dL (NEGATIVE) 08/02/18 17:30 Urine Blood Trace-intact (NEGATIVE) H 08/02/18 17:30 Urine Nitrate Negative (NEGATIVE) 08/02/18 17:30 Urine Bilirubin Negative (NEGATIVE) 08/02/18 17:30 Urine Urobilinogen 0.2 E.U./dL (<1 E.U./dL) 08/02/18 17:30 Ur Leukocyte Esterase Negative [place]/uL (NEGATIVE) 08/02/18 17:30 Urine RBC 1 - 3 /hpf (0-2) 08/02/18 17:30 Urine WBC Negative /hpf (0-6) 08/02/18 17:30 Ur Epithelial Cells 1 - 3 /hpf (0-5) 08/02/18 17:30 Urine Bacteria Trace (NEG) 08/02/18 17:30 Hepatitis A IgM Ab Negative (NEGATIVE) 08/02/18 21:00 Hep Bs Antigen Negative (NEGATIVE) 08/02/18 21:00 Hep B Core IgM Ab Negative (NEGATIVE) 08/02/18 21:00 Hepatitis C Antibody Negative (NEGATIVE) 08/02/18 21:00 Blood Type B POSITIVE 08/03/18 07:40 Blood Type Confirm B POSITIVE 08/03/18 10:00 Antibody Screen Negative 08/03/18 07:40 Crossmatch See Detail 08/03/18 07:40 BBK History Checked No verified bt 08/03/18 07:40 - Hospital Course Hospital Course: Holger Little, PGY-1 Discharge Summary for Hospitalist Service 48 year old female with past medical history of hypertension and GERD who presented with complaint of RUQ pain. She stated she was recently in [place] diagnosed with gallstones. Chest x-ray showed no active disease. Ultrasound abdomen was ordered and confirmed cholelithiasis without evidence of cholecystitis. She was made NPO, place on on iv fluids and IV analgesics. Surgery Dr. Meade was consulted and they recommended to perform laporoscopic cholecystectomy. Patient tolerate procedure well. Patient was found to have transaminitis and his LFTs were monitored closely, likely elevated secondary to cholelithiasis. Hepatitis panel was found to be negative. Urine Culture was found to be positive for lactobacillus species, but patient was without dysuria symptoms. Patient is on protonix for GERD. Patient tolerated oatmeal on morning of discharge and patient was found to be in mild pain. Denies hematuria, clean dressings without abdominal distension. Patient reports flatulence. Patient was found to be in no acute distress, and follow up and recommendations were discussed with daughter at bedside in detail and in patient [place] Welsh. Questions were answered to patient satisfaction and in detail. Patient was prepared for discharge. Patient was given script for Oxycodone and was sent home with instructions to continue home medications. Patient was urged to follow up with Zaki Nolan within 3 days to get blood work for LFTs and avoid Tylenol and alcohol. Additionally, patient was urged to follow up with her surg juan miguel in 10 days. Patient seen, case reviewed and plan approved by Dr. Cao. Discharge Exam - Head Exam Head Exam: ATRAUMATIC - Additional Findings Additional findings: - Constitutional Appears: Non-toxic, No Acute Distress - Head Exam Head Exam: ATRAUMATIC - Eye Exam Eye Exam: EOMI - ENT Exam ENT Exam: Mucous Membranes Moist - Cardiovascular Exam Cardiovascular Exam: +S1, +S2. absent: Bradycardia - GI/Abdominal Exam GI & Abdominal Exam: Soft, Tenderness (appropriately tender around incision). absent: Distended, Firm, Guarding, Rigid, Mass Additional comments: incisions covered with 4x4 dressings and tegaderm, clear dry and intact - Neurological Exam Neurological Exam: Alert, Awake, Oriented x3 - Psychiatric Exam Psychiatric exam: Normal Affect - Skin Skin Exam: Intact, Warm Discharge Plan - Discharge Medications Prescriptions: Hydrochlorothiazide [Microzide] 12.5 mg PO DAILY #30 cap - Follow Up Plan Condition: STABLE Disposition: HOME/ ROUTINE Instructions: The Best Diet for You, Flu, Adult (DC), Gallstones (DC), Influenza Virus Vaccine (Recombinant) Additional Instructions: Please follow up in [address] Meade in office for staple removal. You have been given prescription for Oxydone 5 mg to take every 4 hours, as needed. No heavy lifting > 15lbs for 4-6 weeks. Please use assistance when going up or down stairs. Can removing dressing and shower tomorrow 08/06/18 Please follow up LFTs in 3 days with your PMD Dr. Haines for monitoring of liver enzymes. Should symptoms worsen or reoccur, please visit nearest emergency department. Referrals: Raisa Haines MD [Primary Care Provider] - Zeferino Meade MD [Staff Provider] -
--- NOTE | 2018-08-06 21:53 | OP ---
PROCEDURE DATE: 08/04/2018 PREOPERATIVE DIAGNOSIS: Acute cholecystitis. POSTOPERATIVE DIAGNOSIS: Acute cholecystitis. PROCEDURE: Laparoscopic cholecystectomy. SURGEON: Zeferino Meade MD ANESTHESIA: General endotracheal. DESCRIPTION OF PROCEDURE: The patient was brought to the operating room and placed on the operating room table in the supine position. After induction of general endotracheal anesthesia, Venodyne boots were placed in both legs and prophylactic antibiotics were given. The entire abdomen was prepped and draped in usual sterile fashion. Using treatment blade, a small vertical infraumbilical incision was performed and was brought down the subcutaneous tissue using Bovie and electrocautery. The linea alba was incised and the peritoneal cavity was accessed. Wayne trocar was inserted through the opening. The obturator was removed and the port was connected to a CO2 tank generating the pneumoperitoneum up to 15 mmHg. A 10 mm 30-degree laparoscopic video camera was inserted, and the abdomen was inspected. The gallbladder appeared to be enlarged, inflamed with thickened gallbladder wall, and a small amount of reactive greenish fluid in the right paracolic gutter. Three 5 mm ports were inserted in the right upper quadrant along with the subtotal margins, and through the lateral ports, Endo graspers were inserted, and the gallbladder was grasped fundus and the infundibulum after taking down the adhesions and retracted upwards and outwards exposing the triangle of [place]. The cystic artery and cystic ducts were identified, doubly clipped, and incised. The gallbladder was detached from the liver bed in a retrograde fashion using an Endo hook attached to the Bovie electrocautery. The specimen was placed in an Endo bag, removed from the operating field, and sent to the pathology with appropriate label for permanent sections. The abdomen was irrigated with copious amounts of warm normal saline, and there was no evidence of bleeding or bile leak from the liver bed. The infraumbilical port was removed and the fascial defect was closed with interrupted 0 Vicryl stitches. The integrity of the fascial closure was checked by inserting a 5 mm 30-degree laparoscopic video camera through the subxiphoid port. It was also confirmed that there was no evidence of the bleeding from the port site, and no intraoperative bowel or omentum. The remaining three 5 mm ports were removed under direct laparoscopic visualization, and there was no evidence of bleeding from the port sites. All skin incisions were closed with quita. Sterile dressings were applied. At the end of the surgery, the counts of instruments, gauze, and needles were correct x2. The patient tolerated the surgery well and was transferred in stable condition to recovery room. Zeferino Meade MD
== END 2018-08-05 13:46 | disposition home or self-care (01) | DRG 494 ==
LOC: ED 16:15 → ERH 19:44 → 5RSO 20:49
PROVIDERS: ADMIT Internal Medicine; ATTEND Internal Medicine
PROC: 0FT44ZZ Resection of Gallbladder, Percutaneous Endoscopic Approach (ICD-10-PCS; principal; 2018-08-04 16:25)
DX: K80.00 Calculus of gallbladder with acute cholecystitis without obstruction (principal); I10 Essential (primary) hypertension; K21.9 Gastro-esophageal reflux disease without esophagitis; M81.0 Age-related osteoporosis without current pathological fracture; Z90.710 Acquired absence of both cervix and uterus

== ENCOUNTER 2018-08-29 17:17 | Inpatient (IN) | payer MEDICAID ==
[2018-08-29 17:17] VITALS: BMI 31.6
[2018-08-29] MEDS ORDERED: Sodium Chloride 0.9% 1,000 ML IV STA (17:56)
[2018-08-29] MEDS ORDERED: Alum-Mag Hydrox-Simethicone Susp (30 mL) PO STA (17:56)
[2018-08-29 18:25] LABS: BASO # 0.07 K/mm3 (0.0-2.0); BASO % 1.4 % (0.0-3.0); EOS # 0.4 (0.0-0.7); EOS % 8.5 % (1.5-5.0); GRAN # 2.84 (1.4-6.5); GRAN % 57.1 % (50.0-68.0); LYMPH # 1.3 (1.2-3.4); LYMPH % 26.4 % (22.0-35.0); MEAN CELL VOLUME 87.7 fl (80.0-105.0); MEAN CORPUSCULAR HEMOGLOBIN 27.6 pg (25.0-35.0); MEAN CORPUSCULAR HGB CONC 31.5 g/dl (31.0-37.0); MEAN PLATELET VOLUME 10.3 fl (7.0-11.0); MONO # 0.3 (0.1-0.6); MONO % 6.6 % (1.0-6.0); PH,URINE 6.5 (4.7-8.0); RBC 4.71 10^6/uL (3.5-6.1); RED CELL DISTRIBUTION WIDTH 13.5 % (11.5-14.5); URINE APPEARANCE CLEAR (CLEAR); URINE BILIRUBIN NEGATIVE (NEGATIVE); URINE BLOOD TRACE-INTACT (NEGATIVE); URINE COLOR YELLOW (YELLOW); URINE GLUCOSE (UA) NEGATIVE (NEGATIVE); URINE LEUKOCYTE ESTERASE NEGATIVE Leu/uL (NEGATIVE); URINE PROTEIN NEGATIVE mg/dL (<30 mg/dL); URINE UROBILINOGEN 0.2 E.U./dL (<1 E.U./dL)
[2018-08-29 18:32] LABS: INR 0.97; PARTIAL THROMBOPLASTIN TIME 35.4 Seconds (25.1-36.5); PROTHROMBIN TIME 11.1 SECONDS (9.4-12.5); URINE RBC 0 - 2 /hpf (0-2); URINE WBC NEGATIVE /hpf (0-6)
[2018-08-29 18:44] LABS: ALB/GLOB RATIO 1.3 (1.1-1.8); ALBUMIN 4.2 g/dL (3.0-4.8); ALT/SGPT 750 U/L (7-56); AST/SGOT 672 U/L (14-36); BLOOD UREA NITROGEN 8 mg/dL (7-21); CALCIUM 9.3 mg/dL (8.4-10.5); GFR NON-AFRICAN AMERICAN > 60; LIPASE 183 U/L (23-300)
--- NOTE | 2018-08-29 18:53 | US ---
Date of service: 08/29/2018 HISTORY: RUQ pain, s/p lyndsay COMPARISON: 08/02/2018. TECHNIQUE: Sonographic evaluation of the abdomen. FINDINGS: LIVER: Measures 13.5 cm. Hepatopedal blood flow. Fatty infiltration manifest ultrasonographically as increased echogenicity of the liver parenchyma. No mass. No intrahepatic bile duct dilatation. GALLBLADDER: Status post cholecystectomy. No abnormality is seen in the gallbladder fossa. COMMON BILE DUCT: Measures 5.1 mm. No stones. No dilatation. PANCREAS: Unremarkable as visualized. No mass. No ductal dilatation. RIGHT KIDNEY: Measures 4.5 x 10.6cm. Normal echogenicity. No calculus, mass, or hydronephrosis. LEFT KIDNEY: Measures 4.4 x 10.9cm. Normal echogenicity. No calculus, mass, or hydronephrosis. SPLEEN: Normal in size and contour. No mass. AORTA: No aneurysmal dilatation. IVC: Unremarkable. OTHER FINDINGS: None. IMPRESSION: Status post recent cholecystectomy. No adverse findings. No interval changes otherwise identified.
--- NOTE | 2018-08-29 19:00 | ED PDOC ---
Arrival/HPI - General Chief Complaint: Abdominal Pain Time Seen by Provider: 08/29/18 17:23 - History of Present Illness Narrative History of Present Illness (Text): 48 y/o F s/p lap lyndsay 08/03 p/w abdominal pain x 5 days. Pain is RUQ, sharp/stabbing, constant, nonradiating, associated with nausea and NBNB vomiting x 1. Denies fever, chills, dyspnea, constipation, diarrhea, dysuria. States pain feels different from cholelithiasis pain prior to lap lyndsay. Past Medical History - Infectious Disease Hx of Infectious Diseases: None - Cardiac Hx Cardiac Disorders: Yes Hx Hypertension: Yes - Pulmonary Hx Respiratory Disorders: Yes Hx Asthma: Yes - Neurological Hx Neurological Disorder: No - HEENT Hx HEENT Disorder: No - Renal Hx Renal Disorder: No - Endocrine/Metabolic Hx Endocrine Disorders: No - Hematological/Oncological Hx Blood Transfusions: No Hx Blood Transfusion Reaction: No - Integumentary Hx Dermatological Disorder: No - Musculoskeletal/Rheumatological Hx Musculoskeletal Disorders: No - Gastrointestinal Hx Gastrointestinal Disorders: No - Genitourinary/Gynecological Hx Genitourinary Disorders: No - Psychiatric Hx Psychophysiologic Disorder: No Hx Substance Use: No - Surgical History Hx Hysterectomy: Yes - Anesthesia Hx Anesthesia: Yes Hx Anesthesia Reactions: No Hx Malignant Hyperthermia: No - Suicidal Assessment Feels Threatened In Home Enviroment: No Family/Social History Family/Social History: No Known Family HX Smoking Status: Never Smoked Hx Alcohol Use: No Hx Substance Use: No Allergies/Home Meds Allergies/Adverse Reactions: Allergies No Known Allergies Allergy (Verified 08/02/18 16:24) Home Medications: Home Meds Medication Instructions Recorded Confirmed Pantoprazole 40 mg PO DAILY 12/20/13 08/17/15 RX: Calcium Citrate/Vitamin D3 1 tab PO DAILY 08/02/18 08/02/18 [Calcium Citrate - Vit D3 Tab] Review of Systems - Physician Review All systems were reviewed & negative as marked: Yes - Review of Systems Constitutional: absent: Fevers Cardiovascular: absent: Chest Pain Physical Exam - Physical Exam Narrative Physical Exam (Text): Gen: NAD Head: NC/AT Eyes: PERRL ENT: MMM Neck: Supple Chest: No tenderness CV: Regular rate Lungs: CTA b/l Abd: Soft, RUQ tenderness Back: No CVA tenderness Skin: No rash Extremities: No edema Neuro: Alert, no focal deficit Vital Signs Temp Pulse Resp BP Pulse Ox 08/29/18 17:18 98.7 F 69 18 156/86 H 99 Medical Decision Making ED Course and Treatment: 08/29/18 18:58 IMPRESSION: Status post recent cholecystectomy. No adverse findings. No interval changes otherwise identified. New transaminitis. 08/29/18 19:06 No change in pain after treatment. Will administer morphine. Dr. Zaki boyer. - Lab Interpretations Lab Results: 08/29/18 18:17 08/29/18 18:17 Lab Results 08/29/18 18:17: Urine Color Yellow, Urine Appearance Clear, Urine pH 6.5, Ur Specific [place] <= 1.005, Urine Protein Negative, Urine Glucose (UA) Negative, Urine Ketones Negative, Urine Blood Trace-intact H, Urine Nitrate Negative, Urine Bilirubin Negative, Urine Urobilinogen 0.2, Ur Leukocyte Esterase Negative, Urine RBC 0 - 2, Urine WBC Negative, Ur Epithelial Cells 1 - 3 08/29/18 18:17: Sodium 140, Potassium 4.0, Chloride 107, Carbon Dioxide 25, Anion Gap 12, BUN 8, Creatinine 0.7, Est GFR ( Amer) > 60, Est GFR (Non- Af Amer) > 60, Random Glucose 121 H, Calcium 9.3, Total Bilirubin 1.0, AST 672 H D, ALT 750 H, Alkaline Phosphatase 158 H D, Total Protein 7.5, Albumin 4.2, Globulin 3.3, Albumin/Globulin Ratio 1.3, Lipase 183 08/29/18 18:17: PT 11.1, INR 0.97, APTT 35.4 08/29/18 18:17: WBC 5.0 D, RBC 4.71, Hgb 13.0, Hct 41.3, MCV 87.7 D, MCH 27.6, MCHC 31.5, RDW 13.5, Plt Count 228, MPV 10.3, Gran % 57.1, Lymph % (Auto) 26.4, [place] % (Auto) 6.6 H, Eos % (Auto) 8.5 H, Baso % (Auto) 1.4, Gran # 2.84, Lymph # (Auto) 1.3, [place] # (Auto) 0.3, Eos # (Auto) 0.4, Baso # (Auto) 0.07 - RAD Interpretation Radiology Orders: 08/29/18 17:56 ABDOMEN COMPLETE [US] Stat - Medication Orders Current Medication Orders: Discontinued Medications Al Hydrox/Mg Hydrox/Simethicone (Maalox Plus 30 Ml) 30 ml PO STAT STA Stop: 08/29/18 17:57 Last Admin: 08/29/18 18:17 Dose: 30 ml Famotidine (Pepcid) 20 mg IVP STAT STA Stop: 08/29/18 17:57 Last Admin: 08/29/18 18:17 Dose: 20 mg IVP Administration Document 08/29/18 18:17 DEZ (Rec: 08/29/18 18:17 [place] [id number]-) Charges for Administration # of IVP Administrations 1 Sodium Chloride (Sodium Chloride 0.9%) 1,000 mls @ 999 mls/hr IV .Q1H1M STA Stop: 08/29/18 18:56 Last Admin: 08/29/18 18:16 Dose: 999 mls/hr eMAR Start Stop Document 08/29/18 18:16 DEZ (Rec: 08/29/18 18:17 [id number]-) Intravenous Solution Start Date 08/29/18 Start Time 18:16 End Date 08/29/18 End time 19:16 Total Infusion Time 60 Ondansetron HCl (Zofran Inj) 8 mg IVP STAT STA Stop: 08/29/18 17:57 Last Admin: 08/29/18 18:17 Dose: 8 mg IVP Administration Document 08/29/18 18:17 DEZ (Rec: 08/29/18 18:17 [id number]-) Charges for Administration # of IVP Administrations 1 Disposition/Present on Arrival - Present on Arrival Any Indicators Present on Arrival: No History of DVT/PE: No History of Uncontrolled Diabetes: No Urinary Catheter: No History of Decub. Ulcer: No History Surgical Site Infection Following: None - Disposition Have Diagnosis and Disposition been Completed?: Yes Diagnosis: Transaminitis Disposition: HOSPITALIZED Disposition Time: 18:50 Patient Plan: Admission Condition: GUARDED
[2018-08-29] MEDS ORDERED: Morphine 4 mg/ml ISec IVP STA (19:03)
[2018-08-29] MEDS ORDERED: Morphine 2 mg/ml ISec IVP PRN (19:46)
[2018-08-29] MEDS: Dextrose 5%/0.9% NS 1,000 ML IV SCH (20:20)
--- NOTE | 2018-08-30 08:53 | CP.PCM.CON ---
History of Present Illness - History of Present Illness History of Present Illness: Surgery 48 F w PSH of lap lyndsay on 08/04/18 came with abdominal pain vomiting and diarrhea. Pain started 5 days ago. Located on epigastric and RUQ area. Pt also reports one episode of non bilious non bloody emesis. Non bloody diarrhea 2 days ago. Denies fever, chills, CP , SOB. Pt was seen post op by Dr. Meade. FOund to have transaminitis. US is done CBD 5mm, no stones, post op changes. No fluids collections. fatty infiltration of liver PSH lap lyndsay 08/04, hysterectomy PMH GERD, HTN Review of Systems - Review of Systems Review of Systems: See HPI Past Patient History - Infectious Disease Hx of Infectious Diseases: None - Past Social History Smoking Status: Never Smoked - CARDIAC Hx Hypertension: Yes - PULMONARY Hx Asthma: Yes - NEUROLOGICAL Hx Neurological Disorder: No - HEENT Hx HEENT Problems: No - RENAL Hx Chronic Kidney Disease: No - ENDOCRINE/METABOLIC Hx Endocrine Disorders: No - HEMATOLOGICAL/ONCOLOGICAL Hx Blood Disorders: No - INTEGUMENTARY Hx Dermatological Problems: No - MUSCULOSKELETAL/RHEUMATOLOGICAL Hx Musculoskeletal Disorders: No Hx Falls: No - GASTROINTESTINAL Hx Gastrointestinal Disorders: No - GENITOURINARY/GYNECOLOGICAL Hx Genitourinary Disorders: No - PSYCHIATRIC Hx Psychophysiologic Disorder: No - SURGICAL HISTORY Hx Hysterectomy: Yes - ANESTHESIA Hx Anesthesia: Yes Hx Anesthesia Reactions: No Hx Malignant Hyperthermia: No Meds Allergies/Adverse Reactions: Allergies Allergy/AdvReac Type Severity Reaction Status Date / Time No Known Allergies Allergy Verified 08/02/18 16:24 - Medications Medications: Current Medications Dextrose/Sodium Chloride (Dextrose 5%/0.9% Ns 1000 Ml) 1,000 mls @ 100 mls/hr IV .Q10H [facility] Last Admin: 08/29/18 20:20 Dose: 100 mls/hr Morphine Sulfate (Morphine) 2 mg IVP Q4 PRN PRN Reason: Pain, moderate (4-7) Ondansetron HCl (Zofran Inj) 4 mg IVP Q6H PRN PRN Reason: Nausea/Vomiting Last Admin: 08/30/18 08:25 Dose: 4 mg Physical Exam - Constitutional Appears: No Acute Distress - Head Exam Head Exam: ATRAUMATIC, NORMAL INSPECTION, NORMOCEPHALIC - Eye Exam Eye Exam: EOMI, Normal appearance, PERRL Pupil Exam: NORMAL ACCOMODATION, PERRL - ENT Exam ENT Exam: Mucous Membranes Moist, Normal Exam - Neck Exam Neck exam: Positive for: Normal Inspection - Respiratory Exam Respiratory Exam: NORMAL BREATHING PATTERN - Cardiovascular Exam Cardiovascular Exam: REGULAR RHYTHM, +S1, +S2 - GI/Abdominal Exam GI & Abdominal Exam: Normal Bowel Sounds, Soft, Tenderness. absent: Firm, Guarding, Hernia, Hypoactive Bowel Sounds, Mass, Pulsatile Mass, Rigid Additional comments: Epigatric, RUQ TTP - Extremities Exam Extremities exam: Positive for: full ROM, normal inspection - Back Exam Back exam: NORMAL INSPECTION - Neurological Exam Neurological exam: Alert, CN II-XII Intact, Normal Gait, Oriented x3, Reflexes Normal Results - Vital Signs Recent Vital Signs: Last Vital Signs Temp 98.7 F 08/29/18 17:18 Pulse 68 08/29/18 20:27 Resp 18 08/29/18 20:47 BP 132/76 08/29/18 20:27 Pulse Ox 100 08/29/18 20:27 - Labs Result Diagrams: 08/29/18 18:17 08/29/18 18:17 Labs: Laboratory Results - last 24 hr 08/29/18 08/29/18 08/29/18 18:17 18:17 18:17 WBC 5.0 D RBC 4.71 Hgb 13.0 Hct 41.3 MCV 87.7 D MCH 27.6 MCHC 31.5 RDW 13.5 Plt Count 228 MPV 10.3 Gran % 57.1 Lymph % (Auto) 26.4 [place] % (Auto) 6.6 H Eos % (Auto) 8.5 H Baso % (Auto) 1.4 Gran # 2.84 Lymph # (Auto) 1.3 [place] # (Auto) 0.3 Eos # (Auto) 0.4 Baso # (Auto) 0.07 PT 11.1 INR 0.97 APTT 35.4 Sodium 140 Potassium 4.0 Chloride 107 Carbon Dioxide 25 Anion Gap 12 BUN 8 Creatinine 0.7 Est GFR ( Amer) > 60 Est GFR (Non-Af Amer) > 60 Random Glucose 121 H Calcium 9.3 Total Bilirubin 1.0 AST 672 H D ALT 750 H Alkaline Phosphatase 158 H D Total Protein 7.5 Albumin 4.2 Globulin 3.3 Albumin/Globulin Ratio 1.3 Lipase 183 Urine Color Urine Appearance Urine pH Ur Specific [place] Urine Protein Urine Glucose (UA) Urine Ketones Urine Blood Urine Nitrate Urine Bilirubin Urine Urobilinogen Ur Leukocyte Esterase Urine RBC Urine WBC Ur Epithelial Cells 08/29/18 18:17 WBC RBC Hgb Hct MCV MCH MCHC RDW Plt Count MPV Gran % Lymph % (Auto) [place] % (Auto) Eos % (Auto) Baso % (Auto) Gran # Lymph # (Auto) [place] # (Auto) Eos # (Auto) Baso # (Auto) PT INR APTT Sodium Potassium Chloride Carbon Dioxide Anion Gap BUN Creatinine Est GFR ( Amer) Est GFR (Non-Af Amer) Random Glucose Calcium Total Bilirubin AST ALT Alkaline Phosphatase Total Protein Albumin Globulin Albumin/Globulin Ratio Lipase Urine Color Yellow Urine Appearance Clear Urine pH 6.5 Ur Specific [place] <= 1.005 Urine Protein Negative Urine Glucose (UA) Negative Urine Ketones Negative Urine Blood Trace-intact H Urine Nitrate Negative Urine Bilirubin Negative Urine Urobilinogen 0.2 Ur Leukocyte Esterase Negative Urine RBC 0 - 2 Urine WBC Negative Ur Epithelial Cells 1 - 3 Assessment & Plan - Assessment and Plan (Free Text) Assessment: Abdominal pain and transaminitis s/p lap lyndsay 08/04 trend LFT pain/nausea control GI consult will bonilla Meade
--- NOTE | 2018-08-30 09:54 | CARD ---
APPROVED REPORT Date of service: 08/29/2018 EKG Measurement Heart [id number] <Conclusion> Normal sinus rhythm Normal ECG
[2018-08-30] MEDS: Dextrose 5%/0.9% NS 1,000 ML IV SCH (16:21)
--- NOTE | 2018-08-30 17:08 | CON ---
DATE: 08/30/2018 GASTROENTEROLOGY CONSULTATION This consult is for Dr. Brower, Dr. Evens gustafson. REQUESTING PHYSICIAN: Dr. Eric Polanco. REASON FOR CONSULTATION/HISTORY OF PRESENT ILLNESS: I have been asked to see this 48-year-old female, who underwent a laparoscopic cholecystectomy approximately 3 weeks ago, who comes to the hospital with 3 days of increasing epigastric pain associated with nausea and vomiting. The pain is also located in the right upper quadrant and radiates to around her back. She had one loose bowel movement several days ago. Routine blood work shows liver enzymes with AST, ALT elevated in the 600 range. Ultrasound of the abdomen reveals nondilated ducts with the CBD measuring 5 mm. She denies any jaundice, fevers, chills or chest pain. PAST MEDICAL HISTORY: Notable for cholelithiasis, GERD, hypertension. PAST SURGICAL HISTORY: Notable for hysterectomy, recent cholecystectomy. SOCIAL HISTORY: She denies cigarette smoking or alcohol use. FAMILY HISTORY: Noncontributory. REVIEW OF SYSTEMS: Fourteen-point review of systems is notable for right upper quadrant and epigastric pain, nausea. MEDICATIONS: Medications at home include pantoprazole, hydrochlorothiazide and calcium citrate PHYSICAL EXAMINATION: GENERAL: Well-developed female, lying in bed, in no acute distress. VITAL SIGNS: Reveal a temperature of 98.2, blood pressure 133/78, heart rate is 64. HEENT: Reveals sclerae to be white. Conjunctivae pink. NECK: Supple. CHEST: Lungs are clear. HEART: Exam reveals regular rate and rhythm. ABDOMEN: Soft. The laparoscopic puncture sites are healing without any discharge. There is mild epigastric tenderness and right upper quadrant tenderness to deep palpation. EXTREMITIES: Show no edema. LABORATORY DATA: Reveal white blood cell count of 5.0, hemoglobin 13.0. Chemistries reveal AST 670, ALT 750, alkaline phosphatase of 158, total bilirubin of 1, amylase of 183. IMPRESSION: A 48-year-old female with 3 days of increasing epigastric and right upper quadrant pain, status post laparoscopic cholecystectomy on 08/04 with elevated AST, ALT and alkaline phosphatase, normal total bilirubin with normal common bile duct on ultrasound. One must rule out a retained small common bile duct stone. The common bile duct on ultrasound was negative for any filling defects or dilatation. RECOMMENDATIONS: 1. We would keep n.p.o. 2. We will request a MRCP. Jose Horner MD [facility] # [id number]
[2018-08-30 19:05] LABS: HEPATITIS B SURFACE AG Negative (NEGATIVE)
[2018-08-30 19:11] LABS: HEPATITIS A IGM NEGATIVE (NEGATIVE); HEPATITIS B CORE AB NEGATIVE (NEGATIVE)
[2018-08-30 19:22] LABS: HEPATITIS C ANTIBODY NEGATIVE (NEGATIVE)
--- NOTE | 2018-08-31 00:03 | HP ---
DATE OF EXAM: 08/30/[address] Polanco covering for Dr. Raisa Haines. HISTORY OF PRESENT ILLNESS The patient is a 48-year-old female admitted through emergency department on 08/29/2018 with abdominal pain of 4 to 5 days' duration. She is status post laparoscopic cholecystectomy on 08/03/2018. She denies any fever or chills. She reports one episode of nausea and vomiting. There is no jaundice. No diarrhea. No constipation. No melena. No bright red blood per rectum. PAST MEDICAL HISTORY: Includes hypertension, possible gastroesophageal reflux disease, and history of asthma in the past. PAST SURGICAL HISTORY: Includes status post hysterectomy. ALLERGIES: THE PATIENT HAS NO KNOWN ALLERGIES. MEDICATIONS: Include Protonix 40 mg daily. FAMILY HISTORY: Noncontributory. SOCIAL HISTORY: The patient denies any tobacco or alcohol use. REVIEW OF SYSTEMS: The patient denies any chest pain, shortness of breath, or swelling of the legs. No rash. No jaundice. No itching. PHYSICAL EXAMINATION: GENERAL: The patient is a well-developed female in no acute distress. VITAL SIGNS: Blood pressure 142/89, temperature 97.5, pulse 65, and respiratory rate 18. HEENT: Head is normocephalic and atraumatic. Pupils equal, round, and reactive to light. Extraocular movements intact. NECK: Supple with no thyromegaly. No carotid bruit. No adenopathy. LUNGS: Clear. HEART: Regular rate and rhythm. ABDOMEN: Soft with mild epigastric tenderness to palpation with no guarding and no rebound. EXTREMITIES: Without cyanosis, clubbing or edema. NEUROLOGIC: The patient is awake and oriented x3. SKIN: Warm and dry without jaundice. LABORATORY DATA: WBCs 5, hemoglobin 13, hematocrit 41.3, and platelet count 228. Sodium 140, potassium 4, chloride 107, CO2 of 25, BUN 8, creatinine 0.7, and glucose 121. AST is elevated at 672, ALT elevated at 750, and alk phos elevated at 158. Abdominal ultrasound shows status post recent cholecystectomy. No intrahepatic bile duct dilatation or stones were seen. IMPRESSION: 1. Abdominal pain, status post laparoscopic cholecystectomy with elevated transaminase levels, rule out cholangitis/retained bile duct stones. 2. History of hypertension. 3. History of gastroesophageal reflux disease. 4. History of asthma. PLAN: We will keep n.p.o., IV fluids, obtain GI consultation as well as Surgical consultation for possible MRCP. Dr. Haines to resume care of the patient on Sunday. ABRAM Abreu MD
[2018-08-31 07:40] LABS: HEMOGLOBIN 11.8 g/dL (12.0-16.0); MEAN CELL VOLUME 87.2 fl (80.0-105.0); MEAN CORPUSCULAR HEMOGLOBIN 26.9 pg (25.0-35.0); MEAN CORPUSCULAR HGB CONC 30.8 g/dl (31.0-37.0); MEAN PLATELET VOLUME 10.2 fl (7.0-11.0); RBC 4.39 10^6/uL (3.5-6.1); RED CELL DISTRIBUTION WIDTH 13.3 % (11.5-14.5); WHITE BLOOD COUNT 3.8 10^3/uL (4.5-11.0)
[2018-08-31 08:12] LABS: ALB/GLOB RATIO 1.2 (1.1-1.8); ALBUMIN 3.5 g/dL (3.0-4.8); ALT/SGPT 656 U/L (7-56); AST/SGOT 574 U/L (14-36); BLOOD UREA NITROGEN 5 mg/dL (7-21); CALCIUM 8.5 mg/dL (8.4-10.5); GFR NON-AFRICAN AMERICAN > 60
--- NOTE | 2018-08-31 09:12 | CP.PCM.PN ---
Subjective - Date & Time of Evaluation Date of Evaluation: 08/31/18 Time of Evaluation: 07:00 - Subjective Subjective: Surgery Progress note- Dr. Meade Patient seen and examined at bedside. Abdominal pain improving however still present mid-epigastrum. Has an appetite and would like to have food. Denies chest pain, shortness of breath, nausea, vomiting. Objective - Vital Signs/Intake and Output Vital Signs (last 24 hours): Temp Pulse Resp BP Pulse Ox 97.8 F 70 18 112/70 97 08/31/18 06:00 08/31/18 06:00 08/31/18 06:00 08/31/18 06:00 08/31/18 06:00 - Medications Medications: Current Medications Dextrose/Sodium Chloride (Dextrose 5%/0.9% Ns 1000 Ml) 1,000 mls @ 100 mls/hr IV .Q10H ELVIA Last Admin: 08/30/18 16:21 Dose: 100 mls/hr Ketorolac Tromethamine (Toradol) 15 mg IM Q6 PRN PRN Reason: Pain, moderate (4-7) Stop: 09/04/18 14:39 Last Admin: 08/30/18 21:01 Dose: 15 mg Ondansetron HCl (Zofran Inj) 4 mg IVP Q6H PRN PRN Reason: Nausea/Vomiting Last Admin: 08/30/18 08:25 Dose: 4 mg - Labs Labs: 08/31/18 07:00 08/31/18 07:00 PT 11.1 SECONDS (9.4-12.5) 08/29/18 18:17 INR 0.97 08/29/18 18:17 APTT 35.4 Seconds (25.1-36.5) 08/29/18 18:17 - Constitutional Appears: Non-toxic, No Acute Distress - Head Exam Head Exam: ATRAUMATIC - Eye Exam Eye Exam: EOMI. absent: Scleral icterus - ENT Exam ENT Exam: Mucous Membranes Moist - Respiratory Exam Respiratory Exam: NORMAL BREATHING PATTERN. absent: Accessory Muscle Use, Respiratory Distress - Cardiovascular Exam Cardiovascular Exam: REGULAR RHYTHM. absent: Bradycardia, Tachycardia - GI/Abdominal Exam GI & Abdominal Exam: Soft, Tenderness (tender to palpation in mid-epigastrum). absent: Distended, Firm, Guarding, Rigid - Extremities Exam Extremities Exam: absent: Calf Tenderness - Neurological Exam Neurological Exam: Alert, Awake, Oriented x3 - Psychiatric Exam Psychiatric exam: Normal Affect - Skin Skin Exam: Intact, Warm Assessment and Plan - Assessment and Plan (Free Text) Assessment: 48F s/p cholcystectomy on 08/04 w/ transaminitis Plan: - f/u MRCP - trend liver enzymes - hepatitis pannel - will continue to monitor at this time - further recs per Dr. Meade surgical attending PGY2
--- NOTE | 2018-08-31 10:19 | CP.PCM.PN ---
Subjective - Date & Time of Evaluation Date of Evaluation: 08/31/18 Time of Evaluation: 09:25 - Subjective Subjective: less abdominal pain today, no N/V, Objective - Vital Signs/Intake and Output Vital Signs (last 24 hours): Temp Pulse Resp BP Pulse Ox 97.8 F 70 18 112/70 97 08/31/18 06:00 08/31/18 06:00 08/31/18 06:00 08/31/18 06:00 08/31/18 06:00 - Medications Medications: Current Medications Ketorolac Tromethamine (Toradol) 15 mg IM Q6 PRN PRN Reason: Pain, moderate (4-7) Stop: 09/04/18 14:39 Last Admin: 08/30/18 21:01 Dose: 15 mg Ondansetron HCl (Zofran Inj) 4 mg IVP Q6H PRN PRN Reason: Nausea/Vomiting Last Admin: 08/30/18 08:25 Dose: 4 mg - Labs Labs: 08/31/18 07:00 08/31/18 07:00 PT 11.1 SECONDS (9.4-12.5) 08/29/18 18:17 INR 0.97 08/29/18 18:17 APTT 35.4 Seconds (25.1-36.5) 08/29/18 18:17 - Respiratory Exam Respiratory Exam: Clear to Ausculation Bilateral, NORMAL BREATHING PATTERN - Cardiovascular Exam Cardiovascular Exam: REGULAR RHYTHM - GI/Abdominal Exam GI & Abdominal Exam: Soft, Tenderness, Normal Bowel Sounds - Extremities Exam Extremities Exam: Normal Inspection - Neurological Exam Neurological Exam: Alert, Awake - Skin Skin Exam: Dry, Warm Assessment and Plan (1) Abdominal pain Status: Acute (2) Transaminitis Status: Acute - Assessment and Plan (Free Text) Plan: await MRCP, GI/surgical consults, continue NPO, K+ ordered, monitor lytes
[2018-08-31] MEDS: Potassium Chloride 20 MEQ in Dextrose 5%/0.9% NS 1,000 ML IV SCH ×2 (10:33→21:45)
[2018-09-01 07:21] LABS: HEMOGLOBIN 12.1 g/dL (12.0-16.0); MEAN CELL VOLUME 86.6 fl (80.0-105.0); MEAN CORPUSCULAR HEMOGLOBIN 27.6 pg (25.0-35.0); MEAN CORPUSCULAR HGB CONC 31.8 g/dl (31.0-37.0); MEAN PLATELET VOLUME 10.1 fl (7.0-11.0); RBC 4.39 10^6/uL (3.5-6.1); RED CELL DISTRIBUTION WIDTH 13.3 % (11.5-14.5)
[2018-09-01 07:41] LABS: ALB/GLOB RATIO 1.1 (1.1-1.8); ALBUMIN 3.4 g/dL (3.0-4.8); ALT/SGPT 597 U/L (7-56); AST/SGOT 441 U/L (14-36); BLOOD UREA NITROGEN 4 mg/dL (7-21); CALCIUM 8.5 mg/dL (8.4-10.5); GFR NON-AFRICAN AMERICAN > 60
--- NOTE | 2018-09-01 08:29 | CP.PCM.PN ---
Subjective - Date & Time of Evaluation Date of Evaluation: 09/01/18 Time of Evaluation: 08:27 - Subjective Subjective: Surgery Progress note- Dr. Meade Patient seen and examined at bedside. Abdominal pain improving however still present mid-epigastrum. difficult to sleep overnight. Denies chest pain, shortness of breath, nausea, vomiting. Objective - Vital Signs/Intake and Output Vital Signs (last 24 hours): Temp Pulse Resp BP Pulse Ox 98.4 F 54 L 20 140/80 96 08/31/18 22:00 08/31/18 22:00 08/31/18 22:00 08/31/18 22:00 08/31/18 22:00 - Medications Medications: Current Medications Acetaminophen (Tylenol 325mg Tab) 650 mg PO Q4H PRN PRN Reason: Fever >100.4 F Potassium Chloride 20 meq/ (Dextrose/Sodium Chloride) 1,010 mls @ 100 mls/hr IV .Q10H6M ELVIA Last Admin: 08/31/18 21:45 Dose: 100 mls/hr Ketorolac Tromethamine (Toradol) 15 mg IVP Q6 PRN PRN Reason: Pain, moderate (4-7) Stop: 09/04/18 14:39 Last Admin: 08/31/18 19:33 Dose: 15 mg Ondansetron HCl (Zofran Inj) 4 mg IVP Q6H PRN PRN Reason: Nausea/Vomiting Last Admin: 08/30/18 08:25 Dose: 4 mg - Labs Labs: 09/01/18 07:00 09/01/18 07:00 PT 11.1 SECONDS (9.4-12.5) 08/29/18 18:17 INR 0.97 08/29/18 18:17 APTT 35.4 Seconds (25.1-36.5) 08/29/18 18:17 - Constitutional Appears: Non-toxic, No Acute Distress - Head Exam Head Exam: ATRAUMATIC - Eye Exam Eye Exam: EOMI. absent: Scleral icterus - ENT Exam ENT Exam: Mucous Membranes Moist - Respiratory Exam Respiratory Exam: NORMAL BREATHING PATTERN. absent: Accessory Muscle Use, Respiratory Distress - Cardiovascular Exam Cardiovascular Exam: REGULAR RHYTHM, +S1, +S2. absent: Bradycardia, Tachycardia - GI/Abdominal Exam GI & Abdominal Exam: Soft, Tenderness (tenderness to deep palpation mid- epigastrum. Minimal RUQ tenderness). absent: Distended, Firm, Guarding, Rigid - Extremities Exam Extremities Exam: absent: Calf Tenderness - Neurological Exam Neurological Exam: Alert, Awake, Oriented x3 - Psychiatric Exam Psychiatric exam: Normal Affect - Skin Skin Exam: Intact, Warm Assessment and Plan - Assessment and Plan (Free Text) Assessment: 48F s/p cholcystectomy on 08/04 w/ transaminitis (improving) Plan: - unable to perform MRCP due to patient requesting to be under complete sedation - trend liver enzymes - if pain not improving, GI may plan for EUS - will continue to monitor at this time - further recs per Dr[facility] Meade [facility]
[2018-09-01] MEDS: Potassium Chloride 20 MEQ in Dextrose 5%/0.9% NS 1,000 ML IV SCH ×2 (08:47→20:28)
--- NOTE | 2018-09-01 11:45 | CP.PCM.PN ---
Subjective - Date & Time of Evaluation Date of Evaluation: 09/01/18 Time of Evaluation: 10:35 - Subjective Subjective: c/o some abdominal discomfort, no N/V Objective - Vital Signs/Intake and Output Vital Signs (last 24 hours): Temp Pulse Resp BP Pulse Ox 97.8 F 60 18 133/76 96 09/01/18 06:00 09/01/18 06:00 09/01/18 06:00 09/01/18 06:00 09/01/18 06:00 - Medications Medications: Current Medications Acetaminophen (Tylenol 325mg Tab) 650 mg PO Q4H PRN PRN Reason: Fever >100.4 F Potassium Chloride 20 meq/ (Dextrose/Sodium Chloride) 1,010 mls @ 100 mls/hr IV .Q10H6M ELVIA Last Admin: 09/01/18 08:47 Dose: 100 mls/hr Ketorolac Tromethamine (Toradol) 15 mg IVP Q6 PRN PRN Reason: Pain, moderate (4-7) Stop: 09/04/18 14:39 Last Admin: 09/01/18 08:45 Dose: 15 mg Ondansetron HCl (Zofran Inj) 4 mg IVP Q6H PRN PRN Reason: Nausea/Vomiting Last Admin: 08/30/18 08:25 Dose: 4 mg - Labs Labs: 09/01/18 07:00 09/01/18 07:00 PT 11.1 SECONDS (9.4-12.5) 08/29/18 18:17 INR 0.97 08/29/18 18:17 APTT 35.4 Seconds (25.1-36.5) 08/29/18 18:17 - Respiratory Exam Respiratory Exam: Clear to Ausculation Bilateral, NORMAL BREATHING PATTERN - Cardiovascular Exam Cardiovascular Exam: REGULAR RHYTHM - GI/Abdominal Exam GI & Abdominal Exam: Soft, Tenderness, Normal Bowel Sounds - Extremities Exam Extremities Exam: Normal Inspection - Neurological Exam Neurological Exam: Alert, Awake - Skin Skin Exam: Dry, Warm Assessment and Plan (1) Abdominal pain Status: Acute (2) Transaminitis Status: Acute - Assessment and Plan (Free Text) Plan: LFT's improving slowly, continue NPO/analgesics, continue GI follow-up, for abdominal CT, surgical consult pending, Dr. Haines to resume care of pat in am
[2018-09-01] MEDS ORDERED: Iohexol 350 MG/100 ML VIAL ONE (13:28)
--- NOTE | 2018-09-01 13:48 | PN ---
DATE: 09/01/2018 SUBJECTIVE: The patient continues to complain of epigastric pain. She continues to refuse an MRCP to rule out common duct stone. She denies any nausea, vomiting, fevers or chills. PHYSICAL EXAMINATION: VITAL SIGNS: Temperature of 97.8, blood pressure 133/76, heart rate of 60. HEENT: Reveal sclerae to be white. Conjunctivae pink. NECK: Supple. CHEST AND LUNGS: Clear. HEART: Regular rate and rhythm. ABDOMEN: Soft. There is drys-ea-dhcfpvoa epigastric tenderness to deep palpation. There is no rebound and there is no guarding. EXTREMITIES: No edema. LABORATORY DATA: White blood cell count of 4, hemoglobin 12.1. Chemistries reveal AST trending downward to 441, ALT down to 597, alkaline phosphatase of 140, total bilirubin of 1.2. IMPRESSION: A 48-year-old female with elevated AST and ALT, normal total bilirubin, status post laparoscopic cholecystectomy approximately 3 weeks ago. She continues to have abdominal pain. Her liver function tests are trending downward very slowly. She continues to refuse a magnetic resonance cholangiopancreatography despite offering alprazolam prior to magnetic resonance cholangiopancreatography for claustrophobia. RECOMMENDATIONS: 1. We will request a CT scan of the abdomen and pelvis with IV contrast to rule out a collection or a leak. 2. Endoscopic ultrasound in the a.m. Dr. Brower will resume care of this patient starting 09/02/2018 and perform the EUS and possible ERCP if there is a common bile duct stone. Jose Horner MD
--- NOTE | 2018-09-01 14:17 | CT ---
Date of service: 09/01/2018 PROCEDURE: CT Abdomen and Pelvis with contrast HISTORY: elevated transaminases, S/P lap lyndsay COMPARISON: None. TECHNIQUE: Contrast dose: 100 cc of Omni 350 Radiation dose: Total exam DLP = 786.52 mGy-cm. This CT exam was performed using one or more of the following dose reduction techniques: Automated exposure control, adjustment of the mA and/or kV according to patient size, and/or use of iterative reconstruction technique. FINDINGS: LOWER THORAX: Unremarkable. LIVER: Unremarkable. No gross lesion or ductal dilatation. GALLBLADDER AND BILE DUCTS: Gallbladder removed no evidence of biliary obstruction or fluid collection PANCREAS: Unremarkable. No gross lesion or ductal dilatation. SPLEEN: Unremarkable. ADRENALS: Unremarkable. No mass. KIDNEYS AND URETERS: Unremarkable. No hydronephrosis. No solid mass. VASCULATURE: Unremarkable. No aortic aneurysm. No aortic atherosclerotic calcification or mural plaque present. BOWEL: Unremarkable. No obstruction. No gross mural thickening. APPENDIX: Normal appendix. PERITONEUM: Unremarkable. No free fluid. No free air. LYMPH NODES: Unremarkable. No enlarged lymph nodes. BLADDER: Unremarkable. REPRODUCTIVE: Hysterectomy. 32 x 42 mm left ovarian cyst. There is a small amount of fluid in the cul-de-sac BONES: No acute fracture. OTHER FINDINGS: None. IMPRESSION: Hysterectomy. 32 x 42 mm left ovarian cyst. There is a small amount of fluid in the cul-de-sac Gallbladder removed no evidence of biliary obstruction or fluid collection
[2018-09-02 06:29] LABS: HEMOGLOBIN 12.4 g/dL (12.0-16.0); MEAN CELL VOLUME 87.4 fl (80.0-105.0); MEAN CORPUSCULAR HEMOGLOBIN 27.3 pg (25.0-35.0); MEAN CORPUSCULAR HGB CONC 31.2 g/dl (31.0-37.0); MEAN PLATELET VOLUME 10.5 fl (7.0-11.0); RBC 4.54 10^6/uL (3.5-6.1); RED CELL DISTRIBUTION WIDTH 13.5 % (11.5-14.5); WHITE BLOOD COUNT 4.1 10^3/uL (4.5-11.0)
[2018-09-02 06:41] LABS: ALB/GLOB RATIO 1.1 (1.1-1.8); ALBUMIN 3.6 g/dL (3.0-4.8); ALT/SGPT 565 U/L (7-56); AST/SGOT 437 U/L (14-36); BLOOD UREA NITROGEN 4 mg/dL (7-21); CALCIUM 8.6 mg/dL (8.4-10.5); GFR NON-AFRICAN AMERICAN > 60
--- NOTE | 2018-09-02 08:08 | CP.PCM.PN ---
Subjective - Date & Time of Evaluation Date of Evaluation: 09/02/18 Time of Evaluation: 08:06 - Subjective Subjective: Surgery Progress note- Dr. Meade Patient seen and examined at bedside. Abdominal pain improving however still present mid-epigastrum. difficult to sleep overnight. Denies chest pain, shortness of breath, nausea, vomiting. Objective - Vital Signs/Intake and Output Vital Signs (last 24 hours): Temp Pulse Resp BP Pulse Ox 98.1 F 53 L 18 131/80 98 09/02/18 06:00 09/02/18 06:00 09/02/18 06:00 09/02/18 06:00 09/02/18 06:00 Intake and Output: 09/02/18 09/02/18 06:59 18:59 Intake Total 180 Balance 180 - Medications Medications: Current Medications Acetaminophen (Tylenol 325mg Tab) 650 mg PO Q4H PRN PRN Reason: Fever >100.4 F Potassium Chloride 20 meq/ (Dextrose/Sodium Chloride) 1,010 mls @ 100 mls/hr IV .Q10H6M ELVIA Last Admin: 09/01/18 20:28 Dose: 100 mls/hr Ketorolac Tromethamine (Toradol) 15 mg IVP Q6 PRN PRN Reason: Pain, moderate (4-7) Stop: 09/04/18 14:39 Last Admin: 09/01/18 19:47 Dose: 15 mg Ondansetron HCl (Zofran Inj) 4 mg IVP Q6H PRN PRN Reason: Nausea/Vomiting Last Admin: 08/30/18 08:25 Dose: 4 mg - Labs Labs: 09/02/18 05:30 09/02/18 05:30 PT 11.1 SECONDS (9.4-12.5) 08/29/18 18:17 INR 0.97 08/29/18 18:17 APTT 35.4 Seconds (25.1-36.5) 08/29/18 18:17 - Constitutional Appears: Non-toxic, No Acute Distress - Head Exam Head Exam: ATRAUMATIC - Eye Exam Eye Exam: EOMI. absent: Scleral icterus - ENT Exam ENT Exam: Mucous Membranes Moist - Respiratory Exam Respiratory Exam: NORMAL BREATHING PATTERN. absent: Accessory Muscle Use, Respiratory Distress - Cardiovascular Exam Cardiovascular Exam: REGULAR RHYTHM, +S1, +S2. absent: Bradycardia, Tachycardia - GI/Abdominal Exam GI & Abdominal Exam: Soft, Tenderness (mild tenderness in mid-epigastrum). absent: Distended, Firm, Guarding, Rigid - Neurological Exam Neurological Exam: Alert, Awake, Oriented x3 - Psychiatric Exam Psychiatric exam: Normal Affect - Skin Skin Exam: Intact, Warm Assessment and Plan - Assessment and Plan (Free Text) Assessment: 48F s/p cholcystectomy on 08/04 w/ transaminitis (improving) Plan: - unable to perform MRCP due to patient requesting to be under complete sedation - trend liver enzymes - NPO for EUS possible ERCP w/ GI - will continue to monitor at this time - further recs per Dr. Meade surgical attending PGY2
--- NOTE | 2018-09-02 09:03 | PN ---
DATE: 08/31/2018 DICTATION FOR: Félix Brower MD COVERING PHYSICIAN: Jose Horner MD SUBJECTIVE: The patient feels better this morning. She still has epigastric pain, but it is less. She has not had any further nausea and vomiting. PHYSICAL EXAMINATION: VITAL SIGNS: Reveal temperature of 97.8, blood pressure 112/70. HEENT: Reveal sclerae to be white. Conjunctivae pink. NECK: Supple. CHEST: Lungs are clear. HEART: Reveals a regular rate and rhythm. ABDOMEN: Soft. There is less epigastric tenderness. No rebound. No guarding. EXTREMITIES: Show no edema. LABORATORY DATA: Reveal white blood cell count 3.8, hemoglobin 11.8. Chemistries reveal AST down to 574 from 672, ALT down to 656 from 750, alkaline phosphatase down to 140, total bilirubin remains normal. Hepatitis serology is negative. IMPRESSION: A 48-year-old female with moderately elevated transaminases status post laparoscopic cholecystectomy approximately three weeks ago with epigastric pain, which appears to be improving. I am concerned about a retained common bile duct stone. The patient refused an magnetic resonance cholangiopancreatography yesterday stating that she was claustrophobic. She is requesting anesthesia. I did offer her alprazolam prior to the magnetic resonance cholangiopancreatography and the patient states she did not think this is going to help. I explained to her that anesthesia is not typically used for an MRI. She continues to refuse an magnetic resonance cholangiopancreatography. RECOMMENDATIONS: 1. We will start the patient on clear liquid diet for now. 2. Follow liver enzymes. 3. If her liver enzymes remain elevated and she continues to have pain, she may need an endoscopic ultrasound when Dr. Brower returns on Sunday. Jose Horner MD
--- NOTE | 2018-09-02 12:17 | CP.PCM.PN ---
<Nickolas Dunlap - Last Filed: 09/02/18 19:04> Subjective - Date & Time of Evaluation Date of Evaluation: 09/02/18 Time of Evaluation: 08:40 - Subjective Subjective: Nickolas Dunlap DO, PGY1. GI progress note for Dr Brower Patient seen and examined at bedside. She still have mild persistent epigastric pain, otherwise she reports no complaints. She denied nausea, vomiting, changes in bowel movement, blood per rectum or black stool Objective - Vital Signs/Intake and Output Vital Signs (last 24 hours): Temp Pulse Resp BP Pulse Ox 98.1 F 53 L 18 131/80 98 09/02/18 06:00 09/02/18 06:00 09/02/18 06:00 09/02/18 06:00 09/02/18 06:00 Intake and Output: 09/02/18 09/02/18 06:59 18:59 Intake Total 180 Balance 180 - Medications Medications: Current Medications Acetaminophen (Tylenol 325mg Tab) 650 mg PO Q4H PRN PRN Reason: Fever >100.4 F Potassium Chloride 20 meq/ (Dextrose/Sodium Chloride) 1,010 mls @ 100 mls/hr IV .Q10H6M [facility] Last Admin: 09/01/18 20:28 Dose: 100 mls/hr Ketorolac Tromethamine (Toradol) 15 mg IVP Q6 PRN PRN Reason: Pain, moderate (4-7) Stop: 09/04/18 14:39 Last Admin: 09/01/18 19:47 Dose: 15 mg Ondansetron HCl (Zofran Inj) 4 mg IVP Q6H PRN PRN Reason: Nausea/Vomiting Last Admin: 08/30/18 08:25 Dose: 4 mg - Labs Labs: 09/02/18 05:30 09/02/18 05:30 PT 11.1 SECONDS (9.4-12.5) 08/29/18 18:17 INR 0.97 08/29/18 18:17 APTT 35.4 Seconds (25.1-36.5) 08/29/18 18:17 - Constitutional Appears: Well, No Acute Distress - Head Exam Head Exam: ATRAUMATIC, NORMAL INSPECTION, NORMOCEPHALIC - Eye Exam Eye Exam: EOMI, Normal appearance, PERRL Pupil Exam: NORMAL ACCOMODATION, PERRL - ENT Exam ENT Exam: Mucous Membranes Moist, Normal Exam - Neck Exam Neck Exam: Full ROM, Normal Inspection. absent: Lymphadenopathy - Respiratory Exam Respiratory Exam: Clear to Ausculation Bilateral, NORMAL BREATHING PATTERN - Cardiovascular Exam Cardiovascular Exam: REGULAR RHYTHM, +S1, +S2. absent: Gallop, Rubs, Murmur - GI/Abdominal Exam GI & Abdominal Exam: Soft, Tenderness (mild epigastric tenderness), Normal Bowel Sounds - Extremities Exam Extremities Exam: Full ROM, Normal Capillary Refill, Normal Inspection. absent: Joint Swelling, Pedal Edema - Back Exam Back Exam: NORMAL INSPECTION - Neurological Exam Neurological Exam: Alert, Awake, CN II-XII Intact, Normal Gait, Oriented x3 - Psychiatric Exam Psychiatric exam: Normal Affect, Normal Mood - Skin Skin Exam: Dry, Intact, Normal Color, Warm Assessment and Plan - Assessment and Plan (Free Text) Assessment: 48 y/o female s/p lap lyndsay on 08/04 admitted for persistent epigastric pain found to have transaminitis Plan: -AST/ALT trending down 672/750 to 437/565 today -normal lipase, T-bili, ALP -CT A/P negative for biliary obstruction or fluid collection -abd US shows CBD 5.1mm, no stones, no dilation -hepatitis panel negative -continue zofran -MRCP 09/02: did not show any stones or obstruction. -trend LFT daily -possible EUS if symptoms persist and LFT remains elevated -Ursodiol 300mg TID -clear liquid diet Case reviewed and plan discussed with Dr Leonarda Dunlap, DO <Félix Brower V - Last Filed: 09/02/18 23:14> Objective - Vital Signs/Intake and Output Vital Signs (last 24 hours): Temp Pulse Resp BP Pulse Ox 98 F 61 18 153/93 H 98 09/02/18 22:26 09/02/18 22:26 09/02/18 22:26 09/02/18 22:26 09/02/18 22:26 Intake and Output: 09/02/18 09/03/18 18:59 06:59 Intake Total 480 Balance 480 - Medications Medications: Current Medications Acetaminophen (Tylenol 325mg Tab) 650 mg PO Q4H PRN PRN Reason: Fever >100.4 F Potassium Chloride 20 meq/ (Dextrose/Sodium Chloride) 1,010 mls @ 100 mls/hr IV .Q10H6M [facility] Last Admin: 09/01/18 20:28 Dose: 100 mls/hr Ketorolac Tromethamine (Toradol) 15 mg IVP Q6 PRN PRN Reason: Pain, moderate (4-7) Stop: 09/04/18 14:39 Last Admin: 09/02/18 14:42 Dose: 15 mg Ondansetron HCl (Zofran Inj) 4 mg IVP Q6H PRN PRN Reason: Nausea/Vomiting Last Admin: 08/30/18 08:25 Dose: 4 mg Pantoprazole Sodium (Protonix Inj) 40 mg IVP DAILY [facility] Last Admin: 09/02/18 17:32 Dose: 40 mg Ursodiol (Actigall) 300 mg PO TID [facility] Last Admin: 09/02/18 21:03 Dose: 300 mg - Labs Labs: 09/02/18 05:30 09/02/18 05:30 PT 11.1 SECONDS (9.4-12.5) 08/29/18 18:17 INR 0.97 08/29/18 18:17 APTT 35.4 Seconds (25.1-36.5) 08/29/18 18:17 Attending/Attestation - Attestation I have personally seen and examined this patient.: Yes I have fully participated in the care of the patient.: Yes I have reviewed all pertinent clinical information, including history, physical exam and plan: Yes Notes (Text): This is an addendum to GI consult s report dictated by the GI Fellow.The patient was seen and examined earlier. Medical records, lab studies, imagings were reviewed. Last 24 hours events reviewed. Agreed with the above treatment plan as outlined in GI Fellow 's notes with the addition of the following 09/02/18 23:13
--- NOTE | 2018-09-02 14:53 | MRI ---
Date of service: 09/02/2018 PROCEDURE: Magnetic Resonance Cholangiopancreatography HISTORY: Status post lap cholecystectomy. Elevated liver function tests. Rule out common duct stone COMPARISON: None available. TECHNIQUE: Multiplanar, multisequence MR images of the abdomen were obtained, including heavily T2 weighted MRCP images of the biliary system. Rotating maximum intensity projection images of the biliary system were generated. FINDINGS: MRCP: The common bile duct is of a normal caliber. No evidence of choledocholithiasis. No intrahepatic biliary ductal dilatation. LIVER: Unremarkable. GALLBLADDER: Removed SPLEEN: Unremarkable. PANCREAS: Unremarkable. ADRENALS: Unremarkable. KIDNEYS: Unremarkable. AORTA: No aneurysm. ASCITES: None. OTHER FINDINGS: None. IMPRESSION: Negative study. No evidence of common duct stone or ductal dilatation
[2018-09-03] MEDS: Potassium Chloride 20 MEQ in Dextrose 5%/0.9% NS 1,000 ML IV SCH ×3 (02:25→23:11)
--- NOTE | 2018-09-03 02:53 | PN ---
DATE: 09/02/2018 SUBJECTIVE: The patient is a 48-year-old female. The patient was seen and examined at the bedside on 09/02/2018. Daughter was sitting on the bedside also, still having epigastric pain. No fever. No chills. No nausea, vomiting or diarrhea. No hematuria or hematochezia. No headache or dizziness. No chest pain. No palpitations. PHYSICAL EXAMINATION: VITAL SIGNS: Temperature 98.1, pulse 53, respiratory rate 18, blood pressure 130/80, and pulse oximetry 98. HEENT: Head is normocephalic and atraumatic. Eyes; PERRLA. Extraocular muscles intact. Conjunctivae clear. Nose patent. Mucous membranes moist. NECK: Supple. No carotid bruits, JVD or thyromegaly. CHEST: Bilaterally symmetrical. HEART: S1 and S2 positive. LUNGS: Clear to auscultation. ABDOMEN: Soft, tender in epigastric area. Bowel sounds positive. EXTREMITIES: No edema. No cyanosis. NEUROLOGIC: The patient is awake, alert, and moving all 4 extremities. No focal deficits. MEDICATIONS: Tylenol, potassium, Toradol, and Zofran. LABORATORY DATA: White blood cell 4.1, hemoglobin 12.4, hematocrit 39.7, and platelets 204. Sodium 142, potassium 4, BUN 4, creatinine 0.2, and glucose 116. ASSESSMENT AND PLAN: Ms. Anahi Ritter is a 48-year-old lady with leukopenia, hyperglycemia, hyperchloremia, has persistent epigastric pain, found to have transaminitis, ALT and AST is trending down. CT of abdomen negative for biliary obstruction or fluid collection. Abdominal ultrasound shows CBD 5.1. No stone or dilatation. Hepatitis panel is negative. Magnetic resonance cholangiopancreatography did not show any stone or obstruction possibly endoscopic ultrasound. Gastrointestinal is on the case. The patient is getting clear liquid diet. Magnetic resonance cholangiopancreatography done. CAT scan of the abdomen and pelvis done. Status post cholecystectomy on 08/04/2018. Continue monitoring the liver function test. Appreciated Surgical and Gastrointestinal input. We will follow up. Raisa Haines MD [facility] # [id number]
--- NOTE | 2018-09-03 07:32 | CP.PCM.PN ---
Subjective - Date & Time of Evaluation Date of Evaluation: 09/03/18 Time of Evaluation: 07:28 - Subjective Subjective: PGY-1 Joann Moreno D.O. Surgery progress note for Dr. Braun: Patient was seen and examined this morning. She is ambulating independently. She states that she is not drinking much. Her abdominal pain continues to improve. She denies fevers and chills. Denies nausea, vomiting. Objective - Vital Signs/Intake and Output Vital Signs (last 24 hours): Temp Pulse Resp BP Pulse Ox 98 F 61 18 153/93 H 98 09/02/18 22:26 09/02/18 22:26 09/02/18 22:26 09/02/18 22:26 09/02/18 22:26 Intake and Output: 09/03/18 09/03/18 06:59 18:59 Intake Total 1680 Balance 1680 - Medications Medications: Current Medications Acetaminophen (Tylenol 325mg Tab) 650 mg PO Q4H PRN PRN Reason: Fever >100.4 F Potassium Chloride 20 meq/ (Dextrose/Sodium Chloride) 1,010 mls @ 100 mls/hr IV .Q10H6M [facility] Last Admin: 09/03/18 02:25 Dose: 100 mls/hr Ketorolac Tromethamine (Toradol) 15 mg IVP Q6 PRN PRN Reason: Pain, moderate (4-7) Stop: 09/04/18 14:39 Last Admin: 09/02/18 14:42 Dose: 15 mg Ondansetron HCl (Zofran Inj) 4 mg IVP Q6H PRN PRN Reason: Nausea/Vomiting Last Admin: 08/30/18 08:25 Dose: 4 mg Pantoprazole Sodium (Protonix Inj) 40 mg IVP DAILY [facility] Last Admin: 09/02/18 17:32 Dose: 40 mg Ursodiol (Actigall) 300 mg PO TID [facility] Last Admin: 09/02/18 21:03 Dose: 300 mg - Labs Labs: 09/02/18 05:30 09/02/18 05:30 PT 11.1 SECONDS (9.4-12.5) 08/29/18 18:17 INR 0.97 08/29/18 18:17 APTT 35.4 Seconds (25.1-36.5) 08/29/18 18:17 - Constitutional Appears: Non-toxic, No Acute Distress - Head Exam Head Exam: ATRAUMATIC, NORMAL INSPECTION - Eye Exam Eye Exam: EOMI, Normal appearance - ENT Exam ENT Exam: Mucous Membranes Moist - Neck Exam Neck Exam: Normal Inspection - Respiratory Exam Respiratory Exam: NORMAL BREATHING PATTERN. absent: Accessory Muscle Use, Respiratory Distress - Cardiovascular Exam Cardiovascular Exam: REGULAR RHYTHM - GI/Abdominal Exam GI & Abdominal Exam: Soft, Tenderness (mild, improved). absent: Distended - Extremities Exam Extremities Exam: Normal Inspection - Neurological Exam Neurological Exam: Alert, Awake, Normal Gait, Oriented x3 - Psychiatric Exam Psychiatric exam: Normal Affect, Normal Mood - Skin Skin Exam: Dry, Normal Color, Warm Assessment and Plan - Assessment and Plan (Free Text) Assessment: 48F s/p cholcystectomy on 08/04/18 now with abdominal pain and transaminitis Plan: - Transaminases downtrending- continue to trend - MRCP: no CBD stone or dilation - EUS tomorrow 09/04 - Clear liquid diet Further recs as per attending, Dr. Meade.
--- NOTE | 2018-09-03 10:01 | CP.PCM.PN ---
<Nickolas Dunlap - Last Filed: 09/03/18 18:53> Subjective - Date & Time of Evaluation Date of Evaluation: 09/03/18 Time of Evaluation: 07:05 - Subjective Subjective: Nickolas Dunlap DO, PGY1. GI progress note for Dr Brower Patient seen and examined at bedside. She still have mild persistent epigastric pain, otherwise she reports no complaints. She denied nausea, vomiting, changes in bowel movement, black stool, hematochezi a, fever, chills Objective - Vital Signs/Intake and Output Vital Signs (last 24 hours): Temp Pulse Resp BP Pulse Ox 98 F 67 20 145/73 98 09/03/18 06:00 09/03/18 06:00 09/03/18 06:00 09/03/18 06:00 09/03/18 06:00 Intake and Output: 09/03/18 09/03/18 06:59 18:59 Intake Total 1680 Balance 1680 - Medications Medications: Current Medications Acetaminophen (Tylenol 325mg Tab) 650 mg PO Q4H PRN PRN Reason: Fever >100.4 F Potassium Chloride 20 meq/ (Dextrose/Sodium Chloride) 1,010 mls @ 100 mls/hr IV .Q10H6M [facility] Last Admin: 09/03/18 02:25 Dose: 100 mls/hr Ketorolac Tromethamine (Toradol) 15 mg IVP Q6 PRN PRN Reason: Pain, moderate (4-7) Stop: 09/04/18 14:39 Last Admin: 09/03/18 08:21 Dose: 15 mg Ondansetron HCl (Zofran Inj) 4 mg IVP Q6H PRN PRN Reason: Nausea/Vomiting Last Admin: 08/30/18 08:25 Dose: 4 mg Pantoprazole Sodium (Protonix Inj) 40 mg IVP DAILY [facility] Last Admin: 09/02/18 17:32 Dose: 40 mg Ursodiol (Actigall) 300 mg PO TID [facility] Last Admin: 09/02/18 21:03 Dose: 300 mg - Labs Labs: 09/02/18 05:30 09/02/18 05:30 PT 11.1 SECONDS (9.4-12.5) 08/29/18 18:17 INR 0.97 08/29/18 18:17 APTT 35.4 Seconds (25.1-36.5) 08/29/18 18:17 - Constitutional Appears: Well - Head Exam Head Exam: ATRAUMATIC, NORMAL INSPECTION, NORMOCEPHALIC - Eye Exam Eye Exam: EOMI, Normal appearance, PERRL Pupil Exam: NORMAL ACCOMODATION, PERRL - Respiratory Exam Respiratory Exam: Clear to Ausculation Bilateral, NORMAL BREATHING PATTERN - Cardiovascular Exam Cardiovascular Exam: REGULAR RHYTHM, +S1, +S2. absent: Gallop, Rubs, Murmur - GI/Abdominal Exam GI & Abdominal Exam: Soft, Normal Bowel Sounds. absent: Tenderness - Extremities Exam Extremities Exam: Full ROM, Normal Capillary Refill, Normal Inspection. absent: Joint Swelling, Pedal Edema - Neurological Exam Neurological Exam: Alert, Awake, Oriented x3 - Psychiatric Exam Psychiatric exam: Normal Affect, Normal Mood - Skin Skin Exam: Dry, Intact, Normal Color, Warm Assessment and Plan - Assessment and Plan (Free Text) Assessment: 48 y/o female s/p lap lyndsay on 08/04 admitted for persistent epigastric pain found to have transaminitis Plan: -AST/ALT slowly trending down. continue trending -normal lipase, T-bili, ALP -CT A/P negative for biliary obstruction or fluid collection -abd US shows CBD 5.1mm, no stones, no dilation -hepatitis panel negative -continue zofran -MRCP 09/02: no stones or obstruction. -EUS on 09/04 -continue Ursodiol 300mg TID -clear liquid diet for now -NPO after midnight Case reviewed and plan discussed with Dr Leonarda Dunlap, DO <Félix Brower V - Last Filed: 09/03/18 22:38> Objective - Vital Signs/Intake and Output Vital Signs (last 24 hours): Temp Pulse Resp BP Pulse Ox 97.7 F 70 20 127/77 96 09/03/18 14:21 09/03/18 14:21 09/03/18 14:21 09/03/18 14:21 09/03/18 14:21 Intake and Output: 09/03/18 09/04/18 18:59 06:59 Intake Total 680 420 Balance 680 420 - Medications Medications: Current Medications Acetaminophen (Tylenol 325mg Tab) 650 mg PO Q4H PRN PRN Reason: Fever >100.4 F Potassium Chloride 20 meq/ (Dextrose/Sodium Chloride) 1,010 mls @ 100 mls/hr IV .Q10H6M [facility] Last Admin: 09/03/18 13:31 Dose: 100 mls/hr Ketorolac Tromethamine (Toradol) 15 mg IVP Q6 PRN PRN Reason: Pain, moderate (4-7) Stop: 09/04/18 14:39 Last Admin: 09/03/18 08:21 Dose: 15 mg Ondansetron HCl (Zofran Inj) 4 mg IVP Q6H PRN PRN Reason: Nausea/Vomiting Last Admin: 08/30/18 08:25 Dose: 4 mg Pantoprazole Sodium (Protonix Inj) 40 mg IVP DAILY [facility] Last Admin: 09/03/18 10:22 Dose: 40 mg Ursodiol (Actigall) 300 mg PO TID [facility] Last Admin: 09/03/18 18:06 Dose: 300 mg - Labs Labs: 09/02/18 05:30 09/02/18 05:30 PT 11.1 SECONDS (9.4-12.5) 08/29/18 18:17 INR 0.97 08/29/18 18:17 APTT 35.4 Seconds (25.1-36.5) 08/29/18 18:17 Attending/Attestation - Attestation I have personally seen and examined this patient.: Yes I have fully participated in the care of the patient.: Yes I have reviewed all pertinent clinical information, including history, physical exam and plan: Yes Notes (Text): This is an addendum to GI consult report dictated by the Clip Riveter. The patient was seen and evaluated earlier. Medical records, lab studies, imagings were reviewed. Last 24 hours events reviewed. Agreed with the above treatment plan as outlined in Clip Riveter 's notes with the addition of the following Patient is tolerating diet LFT still remains elevated.Only slight decrease in transaminases noted Discussed with the patient and family Plan is to consider EUS ERCP tomorrow review the labs. CBD was normal with no stones noted in the recent MRCP 09/03/18 22:34
--- NOTE | 2018-09-04 02:50 | PN ---
DATE: 09/03/2018 SUBJECTIVE: The patient is a 48-year-old female. The patient was seen and examined at the bedside on 09/03/2018. Daughter was sitting on the bedside also. Still having epigastric pain. No nausea, vomiting. Tolerated liquid food very well. Tomorrow going for ERCP. Liver function test is improving, but not on the baseline yet. Getting ursodiol. PHYSICAL EXAMINATION: VITAL SIGNS: Temperature 98, pulse 61, respiratory rate 18, blood pressure 153/93, and pulse oximetry 98. HEENT: Head, normocephalic and atraumatic. Eyes, PERRLA. Extraocular muscles intact. Conjunctivae clear. Nose patent. Mucous membranes moist. NECK: Supple. No carotid bruit. No JVD or thyromegaly. CHEST: Bilaterally symmetrical. HEART: S1 and S2 positive. LUNGS: Clear to auscultation. ABDOMEN: Soft. Bowel sound present. No organomegaly. EXTREMITIES: No edema. No cyanosis. NEUROLOGIC: The patient is awake, alert, follows simple commands. MEDICATIONS: Tylenol, potassium, Toradol, Zofran, Protonix, and Actigall. LABORATORY DATA: White blood cell 4.1, hemoglobin 12.4, hematocrit 39.7, and platelets 207. Sodium 142, potassium 4, BUN 4, creatinine 0.2, and glucose 116. ASSESSMENT AND PLAN: Ms. Anahi Ritter is a 48-year-old female with leukopenia, hyperchloremia, hyperglycemia, status post cholecystectomy on 08/04/2018, now came with abdominal pain and transaminitis trending down, and magnetic resonance cholangiopancreatography, no common bile duct stone or dilatation. Now, the patient is going with endoscopic retrograde cholangiopancreatography, endoscopic ultrasound tomorrow. Tolerating clear liquid very well. Appreciated surgical input. Persistent epigastric pain. Lipase is normal. Computed tomography arterial portography negative for biliary obstruction or fluid collections. Abdominal ultrasound shows common bile duct with 5.1 mm. No stone or dilatation. Hepatitis panel negative. Continue ursodiol t.i.d. N.p.o after midnight today. Appreciated Dr. Brower's notes. Repeat laboratories. We will follow up. I had a length of time discussion with the patient's daughter and the patient in their own language. They understand and working on that. Raisa Haines MD [facility]
[2018-09-04 06:58] LABS: HEMOGLOBIN 12.2 g/dL (12.0-16.0); MEAN CELL VOLUME 86.2 fl (80.0-105.0); MEAN CORPUSCULAR HEMOGLOBIN 27.1 pg (25.0-35.0); MEAN CORPUSCULAR HGB CONC 31.4 g/dl (31.0-37.0); RBC 4.5 10^6/uL (3.5-6.1); RED CELL DISTRIBUTION WIDTH 13.4 % (11.5-14.5)
[2018-09-04 07:20] LABS: ALT/SGPT 499 U/L (7-56); AST/SGOT 354 U/L (14-36); BLOOD UREA NITROGEN 4 mg/dL (7-21); GFR NON-AFRICAN AMERICAN > 60
--- NOTE | 2018-09-04 07:48 | CP.PCM.PN ---
Subjective - Date & Time of Evaluation Date of Evaluation: 09/04/18 Time of Evaluation: 06:42 - Subjective Subjective: PGY-1 Joann Moreno D.O. Surgery progress note for Dr. Braun: Patient was seen and examined this morning. She continues to have mild mid epigastric pain. She is tolerating clear liquids. She states that she is urinating frequently but denies dysuria, hematuria. She is ambulating independently. Denies nausea and vomiting. Presently NPO for EUS today. Objective - Vital Signs/Intake and Output Vital Signs (last 24 hours): Temp Pulse Resp BP Pulse Ox 97.8 F 57 L 20 139/72 97 09/03/18 23:18 09/04/18 01:05 09/03/18 23:18 09/04/18 01:05 09/03/18 23:18 Intake and Output: 09/04/18 09/04/18 06:59 18:59 Intake Total 420 Balance 420 - Medications Medications: Current Medications Acetaminophen (Tylenol 325mg Tab) 650 mg PO Q4H PRN PRN Reason: Fever >100.4 F Hydrochlorothiazide (Microzide) 12.5 mg PO DAILY [facility] Last Admin: 09/03/18 23:51 Dose: 12.5 mg Potassium Chloride 20 meq/ (Dextrose/Sodium Chloride) 1,010 mls @ 100 mls/hr IV .Q10H6M [facility] Last Admin: 09/03/18 23:11 Dose: 100 mls/hr Ketorolac Tromethamine (Toradol) 15 mg IVP Q6 PRN PRN Reason: Pain, moderate (4-7) Stop: 09/04/18 14:39 Last Admin: 09/03/18 23:10 Dose: 15 mg Ondansetron HCl (Zofran Inj) 4 mg IVP Q6H PRN PRN Reason: Nausea/Vomiting Last Admin: 08/30/18 08:25 Dose: 4 mg Pantoprazole Sodium (Protonix Inj) 40 mg IVP DAILY [facility] Last Admin: 09/03/18 10:22 Dose: 40 mg Ursodiol (Actigall) 300 mg PO TID [facility] Last Admin: 09/03/18 18:06 Dose: 300 mg - Labs Labs: 09/04/18 06:30 09/04/18 06:30 PT 11.1 SECONDS (9.4-12.5) 08/29/18 18:17 INR 0.97 08/29/18 18:17 APTT 35.4 Seconds (25.1-36.5) 08/29/18 18:17 - Constitutional Appears: Non-toxic, No Acute Distress - Head Exam Head Exam: ATRAUMATIC, NORMAL INSPECTION - Eye Exam Eye Exam: EOMI, Normal appearance - ENT Exam ENT Exam: Mucous Membranes Moist - Neck Exam Neck Exam: Normal Inspection - Respiratory Exam Respiratory Exam: NORMAL BREATHING PATTERN. absent: Accessory Muscle Use, Respiratory Distress - Cardiovascular Exam Cardiovascular Exam: RRR - GI/Abdominal Exam GI & Abdominal Exam: Soft, Tenderness (mild- epigastric). absent: Distended, Mass, Rebound - Extremities Exam Extremities Exam: Normal Inspection - Neurological Exam Neurological Exam: Alert, Awake, CN II-XII Intact, Normal Gait, Oriented x3 - Psychiatric Exam Psychiatric exam: Normal Affect, Normal Mood - Skin Skin Exam: Dry, Normal Color, Warm Assessment and Plan - Assessment and Plan (Free Text) Assessment: 48F s/p cholcystectomy on 08/04/18 now with abdominal pain and transaminitis Plan: - Transaminases slightly downtrending- continue to trend - Imaging- no signs of stones or obstruction - Continue Ursodiol 300mg TID as per GI - Advance diet as per GI - Analgesics PRN - f/u EUS Further recs as per attending, Dr. Meade.
[2018-09-04 08:36] VITALS: RESP 18
[2018-09-04] MEDS: Potassium Chloride 20 MEQ in Dextrose 5%/0.9% NS 1,000 ML IV SCH (10:04)
--- NOTE | 2018-09-04 12:19 | CP.PCM.PN ---
<Nickolas Dunlap - Last Filed: 09/04/18 17:12> Subjective - Date & Time of Evaluation Date of Evaluation: 09/04/18 Time of Evaluation: 12:16 - Subjective Subjective: Nickolas Dunlap DO, PGY1. GI progress note for Dr Brower Patient seen and examined at bedside. Still having mild epigastric pain, otherwise no complaints. She denied nausea, vomiting, changes in bowel movement, black stool, hematochezia, fever, chills Objective - Vital Signs/Intake and Output Vital Signs (last 24 hours): Temp Pulse Resp BP Pulse Ox 98.2 F 65 18 135/79 99 09/04/18 06:00 09/04/18 06:00 09/04/18 06:00 09/04/18 06:00 09/04/18 06:00 Intake and Output: 09/04/18 09/04/18 06:59 18:59 Intake Total 420 Balance 420 - Medications Medications: Current Medications Acetaminophen (Tylenol 325mg Tab) 650 mg PO Q4H PRN PRN Reason: Fever >100.4 F Hydrochlorothiazide (Microzide) 12.5 mg PO DAILY [facility] Last Admin: 09/04/18 10:04 Dose: 12.5 mg Potassium Chloride 20 meq/ (Dextrose/Sodium Chloride) 1,010 mls @ 100 mls/hr IV .Q10H6M [facility] Last Admin: 09/04/18 10:04 Dose: 100 mls/hr Ketorolac Tromethamine (Toradol) 15 mg IVP Q6 PRN PRN Reason: Pain, moderate (4-7) Stop: 09/04/18 14:39 Last Admin: 09/03/18 23:10 Dose: 15 mg Ondansetron HCl (Zofran Inj) 4 mg IVP Q6H PRN PRN Reason: Nausea/Vomiting Last Admin: 08/30/18 08:25 Dose: 4 mg Pantoprazole Sodium (Protonix Inj) 40 mg IVP DAILY [facility] Last Admin: 09/04/18 10:04 Dose: 40 mg Ursodiol (Actigall) 300 mg PO TID [facility] Last Admin: 09/04/18 10:04 Dose: 300 mg - Labs Labs: 09/04/18 06:30 09/04/18 06:30 PT 11.1 SECONDS (9.4-12.5) 08/29/18 18:17 INR 0.97 08/29/18 18:17 APTT 35.4 Seconds (25.1-36.5) 08/29/18 18:17 - Additional Findings Additional findings: - Constitutional Appears: Well - Head Exam Head Exam: ATRAUMATIC, NORMAL INSPECTION, NORMOCEPHALIC - Eye Exam Eye Exam: EOMI, Normal appearance, PERRL Pupil Exam: NORMAL ACCOMODATION, PERRL - Respiratory Exam Respiratory Exam: Clear to Ausculation Bilateral, NORMAL BREATHING PATTERN - Cardiovascular Exam Cardiovascular Exam: REGULAR RHYTHM, +S1, +S2. absent: Gallop, Rubs, Murmur - GI/Abdominal Exam GI & Abdominal Exam: Soft, Normal Bowel Sounds. absent: Tenderness - Extremities Exam Extremities Exam: Full ROM, Normal Capillary Refill, Normal Inspection. absent: Joint Swelling, Pedal Edema - Neurological Exam Neurological Exam: Alert, Awake, Oriented x3 - Psychiatric Exam Psychiatric exam: Normal Affect, Normal Mood - Skin Skin Exam: Dry, Intact, Normal Color, Warm Assessment and Plan - Assessment and Plan (Free Text) Assessment: 48 y/o female s/p lap lyndsay on 08/04 admitted for persistent epigastric pain found to have transaminitis Plan: -abadominal pain is improving, patient is hemodynamically stable, afebrile, in NAD, tolerating her diet -AST/ALT slowly trending down -CT A/P negative for biliary obstruction or fluid collection -abd US shows CBD 5.1mm, no stones, no dilation -MRCP 09/02: no stones or obstruction. -hepatitis panel negative -will hold EUS for now given the clinical picture above. May do it if symptoms worsen -continue Ursodiol 300mg TID as outpatient for 2-3 month -low fat diet -outpatient follow up Case reviewed and plan discussed with Dr Leonarda Dunlap, DO <Félix Brower V - Last Filed: 09/04/18 18:17> Objective - Vital Signs/Intake and Output Vital Signs (last 24 hours): Temp Pulse Resp BP Pulse Ox 97.9 F 76 18 151/99 H 98 09/04/18 14:00 09/04/18 14:00 09/04/18 14:00 09/04/18 14:00 09/04/18 14:00 Intake and Output: 09/04/18 09/04/18 06:59 18:59 Intake Total 420 Balance 420 - Labs Labs: 09/04/18 06:30 09/04/18 06:30 PT 11.1 SECONDS (9.4-12.5) 08/29/18 18:17 INR 0.97 08/29/18 18:17 APTT 35.4 Seconds (25.1-36.5) 08/29/18 18:17 Attending/Attestation - Attestation I have personally seen and examined this patient.: Yes I have fully participated in the care of the patient.: Yes I have reviewed all pertinent clinical information, including history, physical exam and plan: Yes Notes (Text): This is an addendum to GI followup report dictated by the [employer]. The patient was seen and evaluated earlier. Medical records, lab studies, imagings were reviewed. Last 24 hours events reviewed. Agreed with the above treatment plan as outlined in [employer] 's notes with the addition of the following discussed with the patient's daughter and Dr. Haines Patient's LFT shows downward trend Patient was feeling better no pain now On exam abdomen soft nontender Radial EUS scope is not yet available MRCP was reviewed with the raiologist was negative for any CBD tone Patient is on Actigall Since the LFT shows downward trend and the patient has been feeling much better will hold off ERCP at the present time Patient prefers to follow-up and if the LFT shows dowrd trend or become symptomatic would consider EUS ERCP Patient was advised to come to ER if any worsening of symptoms Patient was advised to follow-up with Dr. Haines 09/04/18 18:09
[2018-09-04 14:49] VITALS: BP 151/99; PULSE 76; TEMP 97.9; O2SAT 98
--- NOTE | 2018-09-05 02:40 | DS ---
The patient is 48-year-old female. The patient was seen and examined at the bedside on 09/04/2018. CHIEF COMPLAINT: Epigastric pain. HISTORY OF PRESENT ILLNESS: Ms. Anahi Ritter, 48-year-old female admitted to the emergency room for abdominal pain for a couple of days. The patient is status post laparoscopic cholecystectomy on 08/03/2018. She denies any fever or chills, reports one episode of nausea and vomiting. There is no jaundice. No diarrhea. No constipation. Readmitted the patient. History and physical is done by Dr. Polanco. CAT scan of abdomen and pelvis done. MRCP done. Seen by Dr. 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 Horner also saw the patient covering Dr. Brower. The patient had transaminasemia and liver function test improved slowly. Epigastric pain is little bit better. The patient was started on Ursodiol by Dr. Brower and want to continue Ursodiol, GI cleared the patient. The patient went home. Will follow up as outpatient, may be need ERCP. Liver function test should be done as outpatient. Discussion done with the patient's daughter and patient. She will do follow up with Dr. Brower's office and my office. PAST MEDICAL HISTORY: Hypertension, gastroesophageal reflux disease, history of peptic ulcer disease, history of asthma in the past, history of cholecystectomy due to cholelithiasis. PAST SURGICAL HISTORY: Hysterectomy and cholecystectomy. ALLERGIES: THE PATIENT IS NOT ALLERGIC WITH ANY MEDICATIONS. HOME MEDICATIONS: Protonix. FAMILY HISTORY: Noncontributory. HABITS: Never smoked. No drugs. No ethanol. REVIEW OF SYSTEMS: The patient was seen and examined at the bedside. Looking comfortable. Abdominal pain is gotten little bit better. No headaches. No dizziness. No chest pain. No palpitations. Tolerating food very well. No black stools. No hematuria. No hematochezia. PHYSICAL EXAMINATION: VITAL SIGNS: Temperature 98.2, pulse 65, respiratory rate 18, blood pressure 135/79, pulse oximetry 99. HEENT: Head is normocephalic and atraumatic. Eyes, PERRLA. Extraocular muscles are intact. Conjunctivae clear. Nose patent. NECK: Supple. No carotid bruit or thyromegaly. CHEST: Bilaterally symmetric. HEART: S1 and S2 positive. LUNGS: Clear to auscultation. ABDOMEN: Soft. Bowel sounds present. No organomegaly. EXTREMITIES: No edema. No cyanosis. NEUROLOGIC: The patient is awake, alert. Moving all 4 extremities. No focal deficits. MEDICATIONS: Tylenol, Microzide, dextrose, Toradol, Zofran, Protonix, Actigall. LABORATORY DATA: White blood cells 4.0, hemoglobin 12.2, hematocrit 38.8, platelets 191. Sodium 141, potassium 3.6, BUN 4, creatinine 0.7, glucose 127. ASSESSMENT AND PLAN: Ms. Anahi Ritter, 48-year-old female with anemia, hyperglycemia, abnormal liver function test improving though very slowly, persistent epigastric pain, but getting better. Gastrointestinal is on the case. Surgery is on the case. Hemodynamically she is stable, afebrile. Tolerating food very well. CAT scan reviewed by me. Abdominal ultrasound shows common bile duct 5.1 mm, no stone or dilatation. MRCP no stones or obstruction. Hepatitis panel negative. According to Dr. Brower, hold EUS for now given the clinical picture above may do it if symptoms worsen. Continue Ursodiol t.i.d. as outpatient for 2 to 3 months, low fat diet. Gastrointestinal cleared the patient. Discussion done with Dr. Brower. Discharged the patient. Will follow up Dr. Brower's office and primary care physician's office. Raisa Haines MD
== END 2018-09-04 18:08 | disposition home or self-care (01) | DRG 813 ==
LOC: ED 17:17 → ERH 19:09 → 5RSO 20:32
PROVIDERS: ADMIT Internal Medicine; ATTEND Internal Medicine
DX: R10.13 Epigastric pain (principal); E87.8 Other disorders of electrolyte and fluid balance, not elsewhere classified; R10.11 Right upper quadrant pain; K21.9 Gastro-esophageal reflux disease without esophagitis; I10 Essential (primary) hypertension; R74.0 Nonspecific elevation of levels of transaminase and lactic acid dehydrogenase [LDH]; F40.240 Claustrophobia; R73.9 Hyperglycemia, unspecified; J45.909 Unspecified asthma, uncomplicated; D64.9 Anemia, unspecified; D72.819 Decreased white blood cell count, unspecified; Z87.11 Personal history of peptic ulcer disease; Z90.710 Acquired absence of both cervix and uterus; Z90.49 Acquired absence of other specified parts of digestive tract